=== PATIENT | female | born 1995 | race Caucasian/White ===

== ENCOUNTER 2023-01-22 12:36 | Outpatient (OUT) | payer BC, SELFPAY ==
--- NOTE | 2023-01-22 | US_ITS ---
[address] [address] Patient Name: ARIES SWANSON MRN: [id number] date: 1995 Sex: F Assigned Patient Location: US Current Patient Location: US Accession/Order Number: [id number] Exam Date: 01/22/2023 13:00 Report Date: 01/22/2023 13:35 At the request of: GEORGI SHELBY Procedure: US OB transvaginal Obstetrical ultrasound, 1st trimester CLINICAL: Missed menses N92.6 TECHNIQUE: Transabdominal and transvaginal obstetrical ultrasound was performed. FINDINGS: Comparison: None. UTERUS: A single intrauterine gestation sac is visualized. Yolk sac and pole identified. Mean gestational sac size is 1.07 cm. Dugger rump length is 6.1 mm. heart rate of 90 beats per minute. OVARIES/ADNEXA: The right ovary measures 3.8 x 2.7 x 2.7 cm. The left ovary measures 1.9 x 1.8 x 1.6 cm. There is color flow to both ovaries. There are small follicles in both ovaries, with a complex thick-walled cyst in the right ovary at 1.9 x 1.8 x 1.6 cm that is probably the corpus luteum cyst. No adnexal abnormality. OTHER FINDINGS: Cervical length is 3.2 cm. ULTRASOUND GESTATIONAL AGE AND ESTIMATED DATE OF CONFINEMENT: The estimated gestational age by ultrasound is 6 weeks 3 days with an estimated date of confinement by the ultrasound of 09/14/2023. US/US OB transvaginal IMPRESSION: 1. Single viable intrauterine gestation with yolk sac and pole identified. heart rate of 90 beats per minute. Estimated gestational age by ultrasound is 6 weeks 3 days with an estimated date of confinement by ultrasound of 09/14/2023. Follow-up ultrasound at 18-22 weeks' gestation for anatomy evaluation. 2. Probable 1.9 cm corpus luteum cyst in right ovary. Otherwise, normal ovaries bilaterally with small follicles. 3. Cervical length of 3.2 cm. Electronically authenticated by: LANEY ARRIETA Date: 01/22/2023 13:35
[2023-01-22 13:12] LABS: Basophils Percent Auto 0.5 % (0.2-2.0); Eosinophils Absolute Auto 0.1 10^3/uL (0.0-0.7); Eosinophils Percent Auto 0.6 % (0.9-7.0); Hematocrit 39.3 % (36.0-48.0); Hemoglobin 12.8 g/dL (12.0-16.0); Immature Granulocytes Abs Auto 0.02 10^3/uL (0.00-0.03); Immature Granulocytes Pct Auto 0.2 % (0.0-0.5); Lymphocytes Absolute Auto 1.8 10^3/uL (1.2-3.8); Lymphocytes Percent Auto 21.9 % (20.5-60.0); Mean Corpuscular HGB Conc 32.6 g/dL (29.9-35.2); Mean Corpuscular Volume 88.9 fL (81.0-99.0); Monocytes Absolute Auto 0.5 10^3/uL (0.3-0.8); Monocytes Percent Auto 6.3 % (1.7-12.0); Neutrophils Absolute Auto 5.9 10^3/uL (1.4-6.5); Neutrophils Percent Auto 70.5 % (43.0-75.0); Platelet Count 364 10^3/uL (150-450); Red Blood Count 4.42 10^6/uL (4.20-5.40); White Blood Count 8.3 10^3/uL (4.0-11.0)
[2023-01-22 14:53] LABS: HCG Quantitative 2533 mIU/mL
== END 2023-01-22 12:37 | disposition home or self-care (01) ==
LOC: US 12:36
PROVIDERS: Visit Provider Obstetrics & Gynecology
DX: O20.9 Hemorrhage in early pregnancy, unspecified (principal)
CPT/HCPCS: 36415; 76817; 84702; 85025; 86850; 86900; 86901

== ENCOUNTER 2023-01-24 16:11 | Outpatient (RCR) | payer BC, SELFPAY ==
[2023-01-24 17:10] LABS: HCG Quantitative 2003 mIU/mL
[2023-01-29 15:47] LABS: HCG Quantitative 1259 mIU/mL
== END 2023-02-19 17:51 | disposition home or self-care (01) ==
LOC: LAB 16:11
PROVIDERS: PCP Internal Medicine; Visit Provider Obstetrics & Gynecology
DX: N92.6 Irregular menstruation, unspecified (principal)
CPT/HCPCS: 36415; 84702

== ENCOUNTER 2023-02-19 15:52 | Outpatient (OUT) | payer BC, SELFPAY ==
[2023-02-19 16:44] LABS: HCG Quantitative 4 mIU/mL
== END 2023-02-19 15:53 | disposition home or self-care (01) ==
PROVIDERS: PCP Internal Medicine; Visit Provider Obstetrics & Gynecology
DX: O03.9 Complete or unspecified spontaneous abortion without complication (principal)
CPT/HCPCS: 36415; 84702

== ENCOUNTER 2023-02-21 16:19 | Outpatient (OUT) | payer BC, SELFPAY ==
[2023-02-21 17:16] LABS: HCG Quantitative 2 mIU/mL
== END 2023-02-21 16:20 | disposition home or self-care (01) ==
LOC: LAB 16:19
PROVIDERS: PCP Internal Medicine; Visit Provider Obstetrics & Gynecology
DX: O03.9 Complete or unspecified spontaneous abortion without complication (principal)
CPT/HCPCS: 36415; 84702

== ENCOUNTER 2023-05-27 16:32 | Outpatient (RCR) | payer BC, SELFPAY ==
[2023-05-27 18:28] LABS: HCG Quantitative 369 mIU/mL
[2023-05-29 16:41] LABS: HCG Quantitative 933 mIU/mL
== END 2023-06-20 17:43 | disposition home or self-care (01) ==
LOC: LAB 16:32
PROVIDERS: PCP Internal Medicine; Visit Provider Obstetrics & Gynecology
DX: Z32.01 Encounter for pregnancy test, result positive (principal); Z87.59 Personal history of other complications of pregnancy, childbirth and the puerperium
CPT/HCPCS: 36415; 84702

== ENCOUNTER 2023-07-05 08:38 | Outpatient (OUT) | payer BC, SELFPAY ==
--- NOTE | 2023-07-05 08:40 | US_ITS ---
[address] [address] Patient Name: ARIES MILLAN MRN: [id number] date: 1995 Sex: F Assigned Patient Location: [facility] Current Patient Location: [facility] Accession/Order Number: [id number] Exam Date: 07/05/2023 08:42 Report Date: 07/05/2023 09:19 At the request of: GEORGI SHELBY Procedure: US OB transvaginal EXAMINATION: US OB transvaginal HISTORY: Missed menses COMPARISON: No relevant comparison available. FINDINGS: GESTATIONAL SAC: Present and normal appearing. YOLK SAC: Present and normal appearing. POLE: Present and normal appearing. CARDIAC: Present. UTERUS: Small subchorionic hematoma, 2.3 x 1.3 x 0.9 cm. OVARIES: Right: Normal. Left: Not seen. CERVIX: 5.1 cm in length and closed. CUL-DE-SAC: Normal. OTHER: None. AGE BY LMP: Unknown LMP VEENA BY LMP: AGE BY US CRL: 10 weeks 4 days VEENA BY US CRL: 01/27/2024 US/US OB transvaginal IMPRESSION: 1. Single live intrauterine 10 weeks 4 days by today's ultrasound. Electronically authenticated by: COLEEN ZARAGOZA Date: 07/05/2023 09:19
--- OUTSIDE RECORDS SUMMARY | 2023-07-05 08:42 | XMS_ITS | CCD ---
Author Name Unknown Address [address] [place] [address] Organization [facility] Care Team Providers Care Coal Hiker Name Role Phone GINA OLGUIN Consulting Unavailable REQUEST, NONE LISTED Attending Unavailable REQUEST, NONE LISTED Admitting Unavailable REQUEST, NONE LISTED Admitting Unavailable GINA OLGUIN Consulting Unavailable REQUEST, NONE LISTED Attending Unavailable Pato Martinez Unavailable Allergies Allergy Classification Reported Allergen(s) Allergy Type Date of Onset Reaction(s) Facility (1 source) patient allergy list reviewed by nurse or physicia Propensity to adverse reactions 9 Comment:Done [facility] Other (1 source) Allergies Reconciled Propensity to adverse reactions Unknown [facility] Other Medications Current Medications Medication Drug Class(es) Dates Sig (Normalized) Sig (Original) amoxicillin 875 mg / clavulanate 125 mg oral tablet (1 source) Penicillin-class Antibacterial Start: 11-13-2022 take 1 tablet by mouth every twelve hours Amoxicillin-Pot Clavulanate 875-125 MG 1 tablet Orally every 12 hrs for 7 days Oct, Active valACYclovir 1000 mg oral tablet (1 source) Herpesvirus Nucleoside Analog DNA Polymerase Inhibitor, Herpes Simplex Virus Nucleoside Analog DNA Polymerase Inhibitor, Herpes Zoster Virus Nucleoside Analog DNA Polymerase Inhibitor Start: 04-08-2023 valACYclovir HCl 1 GM 2 tablets twice daily x 1 day then, Orally Once a day for 30 days Mar, Active Completed/Discontinued Medications Medication Drug Class(es) Dates Sig (Normalized) Sig (Original) azithromycin 250 mg oral tablet (1 source) Macrolide Antimicrobial Start: 03-05-2022 take 1 tablet by mouth once daily Azithromycin 250 MG azithromycin 250mg, 2 (two) Tablet PO today followed by 1 PO daily # 6, 03/05/2022, No Refill. Active Oral PO today followed by 1 PO daily for 5 14 Feb, 2022 Not-Taking/PRN cyclobenzaprine hydrochloride 5 mg oral tablet (1 source) Muscle Relaxant Start: 04-29-2020 take 1 tablet by mouth once as needed Cyclobenzaprine HCl 5MG Cyclobenzaprine HCl 5MG, 1 (one) Tablet Tablet q HS # 30, 04/29/2020, Ref. x2. Active Oral q HS for 0 *Pick strength-form from [employer] for eRX* Apr, Not-Taking/PRN sprintec 28 0.25-35 mg-mcg tablet (1 source) Progestin, Estrogen Start: 07-03-2022 take 1 tablet by mouth every twenty-four hours Sprintec 28 0.25-35 MG-MCG 1 tablet Orally Once a day for 28 days Jun, Not-Taking/PRN etodolac 400 mg oral tablet (1 source) Nonsteroidal Anti-inflammatory Drug Start: 04-29-2020 take 1 tablet by mouth twice daily as needed Etodolac 400MG Etodolac 400MG, 1 (one) Tablet Tablet two times daily # 60, 04/29/2020, Ref. x2. Active Oral two times daily for 0 *Pick strength-form from [employer] for eRX* Apr, Not-Taking/PRN Sprintec 28 0.25-35MG-MCG (1 source) Start: 10-02-2021 take 1 tablet by mouth once daily as needed Sprintec 28 0.25-35MG-MCG Sprintec 28 0.25-35MG-MCG, 1 (one) Tablet Tablet daily # 3, 10/02/2021, Ref. x3. Active Oral daily for 0 *Pick strength-form from [employer] for eRX* Sep, Not-Taking/PRN Problems Active Problems Problem Classification Problem Date Documented Da te Episodic/Chronic Allergic reactions (1 source) Nummular eczema; Translations: [Nummular dermatitis] Episodic Immunizations and screening for infectious disease (1 source) Vaccination given; Translations: [Encounter for immunization] Episodic Other non-traumatic joint disorders (1 source) Knee joint effusion; Translations: [Effusion, right knee] Episodic Other non-traumatic joint disorders (1 source) Unstable knee; Translations: [Other instability, right knee] Episodic Other nutritional; endocrine; and metabolic disorders (1 source) Overweight; Translations: [Overweight] Episodic Other upper respiratory infections (2 sources) Acute maxillary sinusitis; Translations: [Acute maxillary sinusitis, unspecified] Onset: 03-28-2015 Episodic Viral infection (3 sources) Herpesviral vesicular dermatitis; Translations: [Herpesviral vesicular dermatitis] Onset: 12-01-2013 Resolved: 03-05-2022 Episodic Past or Other Problems Problem Classification Problem Date Documented Da te Episodic/Chronic Acute and chronic tonsillitis (1 source) Acute tonsillitis; Translations: [Acute tonsillitis due to other specified organisms] Resolved: 03-05-2022 Episodic Bacterial infection; unspecified site (1 source) Bacterial infectious disease; Translations: [Bacterial infection, unspecified, in conditions classified elsewhere and of unspecified site] Onset: 04-19-2017 Episodic Deficiency and other anemia (1 source) Anemia; Translations: [Anemia, unspecified] Onset: 03-07-2015 Episodic Diseases of mouth; excluding dental (1 source) Stomatitis; Translations: [Other forms of stomatitis] Onset: 12-01-2013 Episodic Headache; including migraine (1 source) New daily persistent headache; Translations: [New daily persistent headache (NDPH)] Resolved: 03-05-2022 Chronic Malaise and fatigue (1 source) Malaise and fatigue; Translations: [Other malaise and fatigue] Onset: 11-09-2015 Episodic Other gastrointestinal disorders (1 source) Constipation; Translations: [Constipation, unspecified] Onset: 03-03-2014 Episodic Other infections; including parasitic (1 source) Vincent's angina; Translations: [Other Vincent's infections] Onset: 12-18-2016 Episodic Other nutritional; endocrine; and metabolic disorders (1 source) Body mass index 25-29 - overweight; Translations: [Body mass index 28.0-28.9, adult] Onset: 12-18-2016 Episodic Viral infection (1 source) Disease caused by 2019-nCoV; Translations: [COVID-19] Resolved: 03-05-2022 Encounters Encounter Date Encounter Type Care Provider Facility Start: 04-08-2023 End: 04-08-2023 ambulatory Pato Martinez Other [facility] Other Start: 04-08-2023 Telephone encounter [facility]o [facility] Start: 05-26-2020 End: 05-27-2020 Patient encounter procedure NONE LISTED REQUEST Facility:[facility] Start: 04-28-2020 End: 04-29-2020 Patient encounter procedure GINA OLGUIN Facility:[facility] Procedures Date Procedure Procedure Detail Performing Clinician Start: 09-10-2018 General examination of patient Pato Martinez Other Depression screening Donnell Martinez Other Immunizations Immunization Date Immunization Notes Care Provider Fa [facility] 02-04-2020 influenza virus vaccine, split virus (incl. purified surface antigen) Pato Martinez Other [facility] Other 03-11-2019 influenza virus vaccine, split virus (incl. purified surface antigen) Pato Martinez Other [facility] Other Payers Date Payer Category Payer Self-pay [facility] [id number] Unknown [id number] Unknown [id number] Social History Date Type Detail Facility Sex Assigned At [facility] Other Evaluation note 04-08-2023 Note Date & Type Note Facility 04-08-2023 Evaluation note Encounter Date Diagnosis Assessment Notes Mar, Cold sore (ICD-10 - B00.1) [facility] Other History general Narrative - Reported Note Date & Type Note Facility History general Narrative - Reported Type Medical History Problem Title : Adul t BMI between 22 kg/m2 and 30 kg/m2, Problem Description : Adult BMI between 22 kg/m2 and 30 kg/m2, Problem Comment : 0~0~0, Problem Status : Inactive,, Medical History Problem Title : Adul t BMI greater than or equal to 30 kg/m2, Problem Description : Adult BMI greater than or equal to 30 kg/m2, Problem Comment : 0~1~0, Problem Status : Inactive,, Medical History Problem Title : Adul t BMI less than 22 kg/m2, Problem Description : Adult BMI less than 22 kg/m2, Problem Comment : 0~0~0, Problem Status : Inactive,, Medical History Problem Title : Chil d BMI less than 18.5 kg/m2, Problem Description : Child BMI less than 18.5 kg/m2, Problem Comment : 0~1~0, Problem Status : Inactive,, Medical History Problem Title : comp liance with medical treatment, Problem Description : compliance with medical treatment, Problem Comment : Done, Problem Status : Inactive,, Medical History Problem Title : Depr ession Screening, Problem Description : Depression Screening, Problem Comment : Negative, Problem Status : Inactive,, Medical History Problem Title : Anthony turia, Problem Description : Hematuria, Problem Comment : Hematuria, Problem Status : Inactive,, Medical History Problem Title : MEDI ELIZABETH: No history of significant medical diseases, Problem Status : Inactive,, Medical History Problem Title : no k nown problems, Problem Description : no known problems, Problem Comment : F, Problem Status : Inactive,, Medical History Problem Title : past medical history E&M, Problem Description : past medical history E&M, Problem Comment : chronic constipation Anemia, Problem Status : Inactive,, Medical History Problem Title : past medical history reviewed, Problem Description : past medical history reviewed, Problem Comment : reviewed - no changes required, Problem Status : Inactive,, Medical History Problem Title : PHQ2 Questionairre Score, Problem Description : PHQ2 Questionairre Score, Problem Comment : 0, Problem Status : Inactive,, Medical History Problem Title : PHQ9 Question One score, Problem Description : PHQ9 Question One score, Problem Comment : 0, Problem Status : Inactive,, Medical History Problem Title : PHQ9 Question Two score, Problem Description : PHQ9 Question Two score, Problem Comment : 0, Problem Status : Inactive,, Medical History Problem Title : psyc hiatric examination, comments, Problem Description : psychiatric examination, comments, Problem Comment : alert and cooperative; normal mood and affect; normal attention span and concentration. , Problem Status : Inactive,, Medical History Problem Title : GALVAN SFUSION HISTORY: No history of receiving blood or blood product transfusion(s), Problem Status : Inactive,, Surgical History Problem Title : No p revious surgery, Problem Status : Resolved, Surgical History Problem Title : Non- Contributory Past Surgical History, Problem Status : Active, Surgical History Problem Title : None , Problem Status : Inactive, Surgical History Problem Title : past surgical history reviewed, Problem Description : past surgical history reviewed, Problem Comment : reviewed - no changes required, Problem Status : Inactive, [facility] Other Summary Purpose Family History No Family History Records Found Advance Directives No Advanced Directives Records Found Additional Source Comments INFORMATION SOURCE (unrecogn ized section and content) DATE CREATED AUTHOR 05/26/2020 [facility] REASON FOR VISIT (unrecogniz ed section and content) refill FOR RECORDS PERTAINING TO PATIENTS WHO ARE OR HAVE BEEN ENROLLED IN A CHEMICAL DEPENDENCY/SUBSTANCEABUSE PROGRAM, SOME INFORMATION MAY BE OMITTED. This clinical summary was aggregated from multiple sources. Caution should be exercised in using it in the provision of clinical care. This summary normalizes information from multiple sources, and as a consequence, information in this document may materially change the coding, format and clinical context of patient data. In addition, data may be omitted in some cases. CLINICAL DECISIONS SHOULD BE BASED ON THE PRIMARY CLINICAL RECORDS. [employer] provides no warranty or guarantee of the accuracy or completeness of information in this document.
== END 2023-07-05 08:39 | disposition home or self-care (01) ==
LOC: NOMS 08:38
PROVIDERS: PCP Internal Medicine; Visit Provider Obstetrics & Gynecology
DX: N92.6 Irregular menstruation, unspecified (principal); Z3A.10 10 weeks gestation of pregnancy
CPT/HCPCS: 76817

== ENCOUNTER 2023-07-06 10:26 | Outpatient (OUT) | payer BC, SELFPAY ==
--- OUTSIDE RECORDS SUMMARY | 2023-07-06 10:29 | XMS_ITS | CCD ---
Author Name Unknown Address [address] [place] [address] Organization [facility] Care Team Providers Care Financial Operations Clerk Name Role Phone GINA OLGUIN Consulting Unavailable REQUEST, NONE LISTED Attending Unavailable REQUEST, NONE LISTED Admitting Unavailable REQUEST, NONE LISTED Admitting Unavailable GINA OLGUIN Consulting Unavailable REQUEST, NONE LISTED Attending Unavailable Pato Martinez Unavailable Allergies Allergy Classification Reported Allergen(s) Allergy Type Date of Onset Reaction(s) Facility (1 source) patient allergy list reviewed by nurse or physicia Propensity to adverse reactions 9 Comment:Done [facility] Other (1 source) Allergies Reconciled Propensity to adverse reactions Unknown [facility] Other Medications Current Medications Medication Drug Class(es) [...] q HS for 0 *Pick strength-form from [employer] for eRX* Apr, Not-Taking/PRN sprintec 28 0.25-35 [...] times daily for 0 *Pick strength-form from [employer] for eRX* Apr, Not-Taking/PRN Sprintec 28 0.25-35MG-MCG (1 source) Start: 10-02-2021 take 1 tablet by mouth once daily as needed Sprintec 28 0.25-35MG-MCG Sprintec 28 0.25-35MG-MCG, 1 (one) Tablet Tablet daily # 3, 10/02/2021, Ref. x3. Active Oral daily for 0 *Pick strength-form from [employer] for eRX* Sep, Not-Taking/PRN Problems Active Problems [...] 04-08-2023 End: 04-08-2023 ambulatory Pato Martinez Other [facility] Other Start: 04-08-2023 Telephone encounter Pato [facility] Start: 05-26-2020 End: 05-27-2020 Patient encounter procedure NONE LISTED REQUEST Facility:[facility]1 Start: 04-28-2020 End: 04-29-2020 Patient encounter procedure GINA OLGUIN Facility:[facility]1 Procedures Date Procedure Procedure Detail Performing Clinician Start: 09-10-2018 General examination of patient Pato Martinez Other Depression screening Donnell Martinez Other Immunizations Immunization Date Immunization Notes Care Provider Fa [facility] 02-04-2020 influenza virus vaccine, split virus (incl. purified surface antigen) Pato Martinez Other [facility] Other 03-11-2019 influenza virus vaccine, split virus (incl. purified surface antigen) Pato Martinez Other [facility] Other Payers Date Payer Category Payer Self-pay [facility] [id number] Unknown [id number] Unknown [id number] Social History Date Type Detail Facility Sex Assigned At [facility] Other Evaluation note 04-08-2023 Note Date & Type Note Facility 04-08-2023 Evaluation note Encounter Date Diagnosis Assessment Notes Mar, Cold sore (ICD-10 - B00.1) [facility] Other History general Narrative - Reported Note [...] no changes required, Problem Status : Inactive, [facility] Other Summary Purpose Family History No Family History Records Found Advance Directives No Advanced Directives Records Found Additional Source Comments INFORMATION SOURCE (unrecogn ized section and content) DATE CREATED AUTHOR 05/26/2020 [facility] REASON FOR VISIT (unrecogniz ed section [...] BE BASED ON THE PRIMARY CLINICAL RECORDS. [employer] provides no warranty or guarantee of the accuracy or completeness of information in this document.
[2023-07-06 11:12] LABS: Basophils Percent Auto 0.3 % (0.2-2.0); Eosinophils Absolute Auto 0.1 10^3/uL (0.0-0.7); Eosinophils Percent Auto 0.9 % (0.9-7.0); Hematocrit 37.5 % (36.0-48.0); Hemoglobin 11.8 g/dL (12.0-16.0); Immature Granulocytes Abs Auto 0.04 10^3/uL (0.00-0.03); Immature Granulocytes Pct Auto 0.4 % (0.0-0.5); Lymphocytes Absolute Auto 1.8 10^3/uL (1.2-3.8); Lymphocytes Percent Auto 18.7 % (20.5-60.0); Mean Corpuscular HGB Conc 31.5 g/dL (29.9-35.2); Mean Corpuscular Hemoglobin 27.9 pg (26.7-34.0); Mean Corpuscular Volume 88.7 fL (81.0-99.0); Mean Platelet Volume 9.2 fL (9.5-13.5); Monocytes Absolute Auto 0.6 10^3/uL (0.3-0.8); Monocytes Percent Auto 6.6 % (1.7-12.0); Neutrophils Absolute Auto 7.1 10^3/uL (1.4-6.5); Neutrophils Percent Auto 73.1 % (43.0-75.0); Platelet Count 344 10^3/uL (150-450); Red Blood Count 4.23 10^6/uL (4.20-5.40); Red Cell Distribution Width 13.1 % (11.0-15.0); White Blood Count 9.7 10^3/uL (4.0-11.0)
[2023-07-06 11:18] LABS: Estimated Average Glucose 103 mg/dL; Glycohemoglobin A1C 5.2 % (4.5-6.2)
[2023-07-07 09:09] LABS: Rubella Antibodies, IgG 1.74 index (Immune >0.99)
[2023-07-07 11:07] LABS: HIV Ab/p24 Ag Screen Non Reactive (Non Reactive); Rapid Plasma Reagin, Quant Non Reactive titer (NonRea<1:1)
[2023-07-07 12:07] LABS: HBsAg Screen Negative (Negative)
[2023-07-07 14:17] LABS: HCV Ab Non Reactive (Non Reactive)
== END 2023-07-06 10:27 | disposition home or self-care (01) ==
LOC: LAB 10:27
PROVIDERS: PCP Internal Medicine; Visit Provider Obstetrics & Gynecology
DX: N92.6 Irregular menstruation, unspecified (principal)
CPT/HCPCS: 36415; 83036; 85025; 86592; 86762; 86803; 86850; 86900; 86901; 87086; 87340; 87389

== ENCOUNTER 2023-08-19 15:26 | Outpatient (REF) | payer BC, SELFPAY ==
--- OUTSIDE RECORDS SUMMARY | 2023-08-20 09:05 | XMS_ITS | CCD ---
Author Organization [facility] Care Team Providers Care Paintings Conservator Name Role Phone GINA OLGUIN Consulting Unavailable REQUEST, NONE LISTED Attending Unavailable REQUEST, NONE LISTED Admitting Unavailable REQUEST, NONE LISTED Admitting Unavailable GINA OLGUIN Consulting Unavailable REQUEST, NONE LISTED Attending Unavailable Pato Martinez Unavailable GEORGI SHELBY Attending Unavailable Allergies Allergy Classification Reported Allergen(s) Allergy Type Date of Onset Reaction(s) Facility (1 source) patient allergy list reviewed by nurse or physicia Propensity to adverse reactions Comment:Done [facility] Other (1 source) Allergies Reconciled Propensity to adverse reactions Unknown [facility] Other Medications Current Medications Medication Drug Class(es) [...] q HS for 0 *Pick strength-form from [employer] for eRX* Apr, Not-Taking/PRN sprintec 28 0.25-35 [...] times daily for 0 *Pick strength-form from [employer] for eRX* Apr, Not-Taking/PRN Sprintec 28 0.25-35MG-MCG (1 source) Start: 10-02-2021 take 1 tablet by mouth once daily as needed Sprintec 28 0.25-35MG-MCG Sprintec 28 0.25-35MG-MCG, 1 (one) Tablet Tablet daily # 3, 10/02/2021, Ref. x3. Active Oral daily for 0 *Pick strength-form from [employer] for eRX* Sep, Not-Taking/PRN Problems Active Problems [...] Date Encounter Type Care Provider Facility Start: 07-18-2023 End: 07-18-2023 ambulatory GEORGI HERON Not Available Start: 07-05-2023 End: 07-05-2023 ambulatory GEORGI HERON Not Available Start: 04-08-2023 End: 04-08-2023 ambulatory Pato Martinez Other [facility] Other Start: 04-08-2023 [facility] Start: 05-26-2020 End: 05-27-2020 Patient encounter procedure NONE LISTED REQUEST Facility:[facility]1 Start: 04-28-2020 End: 04-29-2020 Patient encounter procedure GINA OLGUIN Facility:[facility]1 Procedures Date Procedure Procedure Detail Performing Clinician Start: 09-10-2018 General examination of patient Pato Martinez Other Depression screening Donnell Martinez Other Immunizations Immunization Date Immunization Notes Care Provider Meli wilkinson 02-04-2020 influenza virus vaccine, split virus (incl. purified surface antigen) Pato Martinez Other [facility] Other 03-11-2019 influenza virus vaccine, split virus (incl. purified surface antigen) Pato Martinez Other [facility] Other Payers Date Payer Category Payer Unknown [id number] 1995 Unknown [id number] 1995 Unknown [id number] 1957 Self-pay [email or web address] [id number] Unknown [id number] Unknown [id number] Social History Date Type Detail Facility Sex Assigned At [facility] Other Evaluation note 04-08-2023 Note Date & Type Note Facility 04-08-2023 Evaluation note Encounter Date Diagnosis Assessment Notes Mar, Cold sore (ICD-10 - B00.1) [facility] Other History general Narrative - Reported Note [...] no changes required, Problem Status : Inactive, [facility] Other Summary Purpose Family History No Family History Records FoundNo Family History Records Found Advance Directives No Advanced Directives Records FoundNo Advanced Directives Records Found Additional Source Comments INFORMATION SOURCE (unrecogn ized section and content) DATE CREATED AUTHOR 05/26/2020 [facility] DATE CREATED AUTHOR AUTHOR'S ORGANIZ ATION 07/19/2023 [facility] EPIC REASON FOR VISIT (unrecogniz ed section and [...] BE BASED ON THE PRIMARY CLINICAL RECORDS. [employer] provides no warranty or guarantee of the accuracy or completeness of information in this document.
[2023-08-23 09:09] LABS: Age Gdln ACOG Testing Note (.); IGP, rfx Aptima HPV ASCU Note (.)
== END 2023-08-19 15:27 | disposition home or self-care (01) ==
LOC: LAB 15:26
PROVIDERS: PCP Internal Medicine; Visit Provider Physician Assistant
DX: Z01.419 Encounter for gynecological examination (general) (routine) without abnormal findings (principal)
CPT/HCPCS: G0145

== ENCOUNTER 2023-09-09 12:57 | Outpatient (OUT) | payer BC, SELFPAY ==
--- NOTE | 2023-09-09 13:08 | US_ITS ---
[address] [address] Patient Name: ARIES MILLAN MRN: [id number] date: 1995 Sex: F Assigned Patient Location: US Current Patient Location: US Accession/Order Number: [id number] Exam Date: 09/09/2023 13:12 Report Date: 09/09/2023 15:04 At the request of: GEORGI SHELBY Procedure: US OB anatomy EXAMINATION: US OB anatomy, US OB cervical length HISTORY: Screening, , for anatomic survey Z36.89 COMPARISON: Ultrasound OB transvaginal 07/05/2023 TECHNIQUE: Transabdominal sonographic examination was performed for obstetrical and evaluation. FINDINGS: Number: 1 Heart Rate: 142.9 bpm H.B. /min Amniotic Fluid Volume: Subjectively normal Placental Location: Anterior with lower margin 7.4 cm from os. Incidental small venous roberts. Cervix Length: 5.0 cm, closed. ANATOMY: Normal Structures -cerebellum, choroid plexus, cisterna magna, lateral cerebral ventricles, orbits, midline falx, hard palate, four-chamber heart, RVOT, LVOT, stomach, kidneys, bladder, umbilical cord insertion into abdomen, three-vessel cord, cervical spine, thoracic spine, lumbar spine, sacral spine, right upper extremity, left upper extremity, right lower extremity, left lower extremity. SUBOPTIMALLY SEEN: None ABNORMALITIES: None BIOMETRY: BPD: 4.6 cm 20 weeks 0 days HC: 17.5 cm 20 weeks 0 days AC: 15.2 cm 20 weeks 3 days FL: 3.2 cm 20 weeks 0 days EFW:337.7 grams; 56% FL/AC: 21.1 FL/BPD: 69.5 HC/AC: 1.2 GESTATIONAL AGE: Age by EDC: 20 weeks 0 days VEENA by EDC: 01/27/2024 Age by current US: 20 weeks 1 days VEENA by current US: 01/26/2024 US/US OB anatomy IMPRESSION: 1. Single live intrauterine with growth detailed above. Electronically authenticated by: COLEEN ZARAGOZA Date: 09/09/2023 15:04
--- NOTE | 2023-09-09 13:09 | US_ITS ---
[address] [address] Patient Name: ARIES MILLAN MRN: [id number] date: 1995 Sex: F Assigned Patient Location: US Current Patient Location: US Accession/Order Number: [id number] Exam Date: 09/09/2023 13:12 Report Date: 09/09/2023 15:04 At the request of: GEORGI SHELBY Procedure: US OB cervical length EXAMINATION: US OB anatomy, US OB cervical length HISTORY: Screening, , for anatomic survey Z36.89 COMPARISON: Ultrasound OB transvaginal 07/05/2023 TECHNIQUE: Transabdominal sonographic examination was performed for obstetrical and evaluation. FINDINGS: Number: 1 Heart Rate: 142.9 bpm H.B. /min Amniotic Fluid Volume: Subjectively normal Placental Location: Anterior with lower margin 7.4 cm from os. Incidental small venous roberts. Cervix Length: 5.0 cm, closed. ANATOMY: Normal Structures -cerebellum, choroid plexus, cisterna magna, lateral cerebral ventricles, orbits, midline falx, hard palate, four-chamber heart, RVOT, LVOT, stomach, kidneys, bladder, umbilical cord insertion into abdomen, three-vessel cord, cervical spine, thoracic spine, lumbar spine, sacral spine, right upper extremity, left upper extremity, right lower extremity, left lower extremity. SUBOPTIMALLY SEEN: None ABNORMALITIES: None BIOMETRY: BPD: 4.6 cm 20 weeks 0 days HC: 17.5 cm 20 weeks 0 days AC: 15.2 cm 20 weeks 3 days FL: 3.2 cm 20 weeks 0 days EFW:337.7 grams; 56% FL/AC: 21.1 FL/BPD: 69.5 HC/AC: 1.2 GESTATIONAL AGE: Age by EDC: 20 weeks 0 days VEENA by EDC: 01/27/2024 Age by current US: 20 weeks 1 days VEENA by current US: 01/26/2024 US/US OB cervical length IMPRESSION: 1. Single live intrauterine with growth detailed above. Electronically authenticated by: COLEEN ZARAGOZA Date: 09/09/2023 15:04
--- OUTSIDE RECORDS SUMMARY | 2023-09-09 13:17 | XMS_ITS | CCD ---
Author Organization [facility] Care Team Providers Care Certified Substance Abuse Counselor Name Role Phone GINA OLGUIN Consulting Unavailable REQUEST, NONE LISTED Attending Unavailable REQUEST, NONE LISTED Admitting Unavailable REQUEST, NONE LISTED Admitting Unavailable GINA OLGUIN Consulting Unavailable REQUEST, NONE LISTED Attending Unavailable Pato Martinez Unavailable GEORGI SHELBY Attending Unavailable MASOOD PILLAI Attending Unavailable Allergies Allergy Classification Reported Allergen(s) Allergy Type Date of Onset Reaction(s) Facility (1 source) patient allergy list reviewed by nurse or physicia Propensity to adverse reactions Comment:Done [employer] Other (1 source) Allergies Reconciled Propensity to adverse reactions Unknown [employer] [facility] Other Medications Current Medications Medication Drug Class(es) [...] followed by 1 PO daily for 5 Feb, Not-Taking/PRN cyclobenzaprine hydrochloride 5 mg oral tablet (1 source) Muscle Relaxant Start: 04-29-2020 take 1 tablet by mouth once as needed Cyclobenzaprine HCl 5MG Cyclobenzaprine HCl 5MG, 1 (one) Tablet Tablet q HS # 30, 04/29/2020, Ref. x2. Active Oral q HS for 0 *Pick strength-form from [employer] for eRX* Apr, Not-Taking/PRN sprintec 28 0.25-35 [...] times daily for 0 *Pick strength-form from [employer] for eRX* Apr, Not-Taking/PRN Sprintec 28 0.25-35MG-MCG (1 source) Start: 10-02-2021 take 1 tablet by mouth once daily as needed Sprintec 28 0.25-35MG-MCG Sprintec 28 0.25-35MG-MCG, 1 (one) Tablet Tablet daily # 3, 10/02/2021, Ref. x3. Active Oral daily for 0 *Pick strength-form from [employer] for eRX* Sep, Not-Taking/PRN Problems Active Problems [...] Date Encounter Type Care Provider Facility Start: 08-19-2023 End: 08-19-2023 ambulatory MASOOD PILLAI Not Available Start: 07-18-2023 End: 07-18-2023 ambulatory GEORGI COXO Not Available Start: 07-05-2023 End: 07-05-2023 ambulatory GEORGI HERON Not Available Start: 04-08-2023 End: 04-08-2023 ambulatory Pato Martinez Other [employer] Other Start: 04-08-2023 Telephone encounter [facility] Start: 05-26-2020 End: 05-27-2020 Patient encounter procedure NONE LISTED REQUEST Facility:H1 Start: 04-28-2020 End: 04-29-2020 Patient encounter procedure GINA OLGUIN Facility:H1 Procedures Date Procedure Procedure Detail Performing Clinician Start: 09-10-2018 General examination of patient Pato Martinez Other Depression screening Donnell Martinez Other Immunizations Immunization Date Immunization Notes Care Provider [facility] 02-04-2020 influenza virus vaccine, split virus (incl. purified surface antigen) Pato Martinez Other [employer] Other 03-11-2019 influenza virus vaccine, split virus (incl. purified surface antigen) Pato Martinez Other [employer] Other Payers Date Payer Category Payer Unknown [id number] 1995 Unknown [id number] 2.16.84 [id number] 1995 Unknown [id number] 2.16.84 [id number] 1995 Unknown [id number] 2.16.84 [id number] 1959 Self-pay [facility] [id number] [id number] Unknown [id number] 2.16.84 [id number] Unknown [id number] 2.16.84 [id number] Social History Date Type Detail Facility Sex Assigned At [employer] Other Evaluation note 04-08-2023 Note Date & Type Note Facility 04-08-2023 Evaluation note Encounter Date Diagnosis Assessment Notes Mar, Cold sore (ICD-10 - B00.1) [facility] Other History general Narrative - Reported Note [...] no changes required, Problem Status : Inactive, [place] [employer] Other Summary Purpose Family History No Family History Records FoundNo Family History Records Found Advance Directives No Advanced Directives Records FoundNo Advanced Directives Records Found Additional Source Comments INFORMATION SOURCE (unrecogn ized section and content) DATE CREATED AUTHOR 05/26/2020 [facility] DATE CREATED AUTHOR AUTHOR'S ORGANIZ ATION 08/20/2023 [facility] dical Specialists EPIC REASON FOR VISIT (unrecogniz [...] BE BASED ON THE PRIMARY CLINICAL RECORDS. [employer] [facility]. provides no warranty or guarantee of the accuracy or completeness of information in this document.
[2023-09-11 01:10] LABS: AFP Value 51.9 ng/mL (.); Gestat. Age Based On Ultrasound (.); Insulin Dep Diabetes No (.); OSBR Risk 1 IN 10000 (.); Results Report (.)
== END 2023-09-09 12:58 | disposition home or self-care (01) ==
LOC: US 12:57
PROVIDERS: PCP Internal Medicine; Visit Provider Obstetrics & Gynecology
DX: Z34.92 Encounter for supervision of normal pregnancy, unspecified, second trimester (principal); Z3A.20 20 weeks gestation of pregnancy
CPT/HCPCS: 36415; 76805; 76817; 82105

== ENCOUNTER 2023-10-17 08:03 | Outpatient (OUT) | payer BC, SELFPAY ==
--- OUTSIDE RECORDS SUMMARY | 2023-10-17 08:24 | XMS_ITS | CCD ---
Author Organization [facility] Care Team Providers Care Boat Carpenter Name Role Phone GINA OLGUIN Consulting Unavailable REQUEST, NONE LISTED Attending Unavailable REQUEST, NONE LISTED Admitting Unavailable REQUEST, NONE LISTED Admitting Unavailable GINA OLGUIN Consulting Unavailable REQUEST, NONE LISTED Attending Unavailable Pato Martinez Unavailable GEORGI SHELBY Attending Unavailable MASOOD PILLAI Attending Unavailable GEORGI SHELBY Attending Unavailable Allergies Allergy Classification Reported Allergen(s) Allergy Type Date of Onset Reaction(s) Facility (1 source) patient allergy list reviewed by nurse or physicia Propensity to adverse reactions 9 Comment:Done [employer] Other (1 source) Allergies Reconciled Propensity to adverse reactions Unknown [employer] Other Medications Current Medications Medication Drug Class(es) [...] q HS for 0 *Pick strength-form from [employer] for eRX* Apr, Not-Taking/PRN sprintec 28 0.25-35 [...] times daily for 0 *Pick strength-form from [employer] for eRX* Apr, Not-Taking/PRN Sprintec 28 0.25-35MG-MCG (1 source) Start: 10-02-2021 take 1 tablet by mouth once daily as needed Sprintec 28 0.25-35MG-MCG Sprintec 28 0.25-35MG-MCG, 1 (one) Tablet Tablet daily # 3, 10/02/2021, Ref. x3. Active Oral daily for 0 *Pick strength-form from [employer] for eRX* Sep, Not-Taking/PRN Problems Active Problems [...] Date Encounter Type Care Provider Facility Start: 09-18-2023 End: 09-18-2023 ambulatory GEORGI HERON Not Available Start: 08-19-2023 End: 08-19-2023 ambulatory MASOOD PILLAI Not Available Start: 07-18-2023 End: 07-18-2023 ambulatory GEORGI COXO Not Available Start: 07-05-2023 End: 07-05-2023 ambulatory GEORGI COXO Not Available Start: 04-08-2023 End: 04-08-2023 ambulatory Pato Martinez Other [employer] Other Start: 04-08-2023 Telephone encounter Pato [facility] Start: 05-26-2020 End: 05-27-2020 Patient encounter procedure NONE LISTED REQUEST Facility: Start: 04-28-2020 End: 04-29-2020 Patient encounter procedure GINA OLGUIN Facility: Procedures Date Procedure Procedure Detail Performing Clinician Start: 09-10-2018 General examination of patient Pato Martinez Other Depression screening Donnell Martinez Other Immunizations Immunization Date Immunization Notes Care Provider [facility] 02-04-2020 influenza virus vaccine, split virus (incl. purified surface antigen) Pato Martinez Other [employer] Other 03-11-2019 influenza virus vaccine, split virus (incl. purified surface antigen) Pato Martinez Other [employer] Other Payers Date Payer Category Payer Unknown [id number] 1995 Unknown [id number] 2.16.84 [id number] 1995 Unknown [id number] 2.16.84 [id number] 1995 Unknown [id number] 2.16.84 0.1.098341.3.579.2.1259 1995 Unknown [id number] 2.16.84 0.1.986209.3.579.2.1259 1957 Self-pay [facility] [id number] [id number] Unknown [id number] 2.16.84 [id number] Unknown [id number] 2.16.84 [id number] Social History Date Type Detail Facility Sex Assigned At [employer] Other Evaluation note 04-08-2023 Note Date & Type Note Facility 04-08-2023 Evaluation note Encounter Date Diagnosis Assessment Notes Mar, Cold sore (ICD-10 - B00.1) [employer] Other History general Narrative - Reported Note [...] no changes required, Problem Status : Inactive, [facility] [employer] Other Summary Purpose Family History No Family History Records FoundNo Family History Records Found Advance Directives No Advanced Directives Records FoundNo Advanced Directives Records Found Additional Source Comments INFORMATION SOURCE (unrecogn ized section and content) DATE CREATED AUTHOR 05/26/2020 [facility] DATE CREATED AUTHOR AUTHOR'S ORGANIZ ATION 09/19/2023 [facility] dical Specialists EPIC REASON FOR [...] BE BASED ON THE PRIMARY CLINICAL RECORDS. [facility]. provides no warranty or guarantee of the accuracy or completeness of information in this document.
[2023-10-17 09:58] LABS: Basophils Percent Auto 0.4 % (0.2-2.0); Eosinophils Absolute Auto 0.2 10^3/uL (0.0-0.7); Eosinophils Percent Auto 2.1 % (0.9-7.0); Hematocrit 34.7 % (36.0-48.0); Hemoglobin 11.2 g/dL (12.0-16.0); Immature Granulocytes Abs Auto 0.07 10^3/uL (0.00-0.03); Immature Granulocytes Pct Auto 0.6 % (0.0-0.5); Mean Corpuscular HGB Conc 32.3 g/dL (29.9-35.2); Mean Corpuscular Volume 89.9 fL (81.0-99.0); Mean Platelet Volume 9.4 fL (9.5-13.5); Monocytes Absolute Auto 0.6 10^3/uL (0.3-0.8); Monocytes Percent Auto 5.5 % (1.7-12.0); Neutrophils Absolute Auto 8.2 10^3/uL (1.4-6.5); Neutrophils Percent Auto 73.4 % (43.0-75.0); Platelet Count 267 10^3/uL (150-450); Red Blood Count 3.86 10^6/uL (4.20-5.40); Red Cell Distribution Width 12.6 % (11.0-15.0); White Blood Count 11.2 10^3/uL (4.0-11.0)
[2023-10-17 11:09] LABS: Glucose 1 Hour 86 mg/dL (<130)
== END 2023-10-17 08:04 | disposition home or self-care (01) ==
LOC: LAB 08:03
PROVIDERS: PCP Internal Medicine; Visit Provider Obstetrics & Gynecology
DX: Z13.1 Encounter for screening for diabetes mellitus (principal)
CPT/HCPCS: 36415; 82950; 85025

== ENCOUNTER 2023-12-02 09:57 | Outpatient (OUT) | payer BC, SELFPAY ==
--- NOTE | 2023-12-02 10:11 | US_ITS ---
[address] [address] Patient Name: ARIES MILLAN MRN: [id number] date: 1995 Sex: F Assigned Patient Location: US Current Patient Location: US Accession/Order Number: [id number] Exam Date: 12/02/2023 10:15 Report Date: 12/02/2023 11:13 At the request of: MASOOD PILLAI Procedure: US OB growth EXAMINATION: US OB growth HISTORY: Size Inconsistent With Dates O26.849 COMPARISON: No relevant comparison available. TECHNIQUE: Transabdominal sonographic examination was performed for obstetrical and evaluation. FINDINGS: Number: 1 Heart Rate: 124.42 bpm H.B. /min Amniotic Fluid Volume: 13.9 cm. Largest fluid pocket 5.4 cm Placental Location: Anterior. Grade 0 BIOMETRY: BPD: 8.00 cm; 32 weeks 1 day; 44.30 % HC: 30.92 cm; 34 weeks 4 days; 79.60 % AC: 29.47 cm; 33 weeks 3 days; 86.40 % FL: 6.25 cm; 32 weeks 3 days; 46.50 % EFW:2123.69 g; 75.50 %, 4 lbs. 11 oz. FL/AC: 21.19 FL/BPD: 78.09 HC/AC: 1.05 GESTATIONAL AGE: Age by EDC: 32 weeks 0 days VEENA by EDC: 2024-01-27 Age by current US: 33 weeks 1 day VEENA by current US: 2024-01-19 US/US OB growth IMPRESSION: Normal interval growth *Reference: [facility] Practice Guideline for the performance of Obstetric Ultrasound Examinations, January 20, 2007. Electronically authenticated by: ALEKS HERNANDEZ Date: 12/02/2023 11:13
--- OUTSIDE RECORDS SUMMARY | 2023-12-02 10:20 | XMS_ITS | CCD ---
Author Organization [facility] Care Team Providers Care Border Machine Operator Name Role Phone GINA OLGUIN Consulting Unavailable REQUEST, NONE LISTED Attending Unavailable REQUEST, NONE LISTED Admitting Unavailable REQUEST, NONE LISTED Admitting Unavailable GINA OLGUIN Consulting Unavailable REQUEST, NONE LISTED Attending Unavailable Pato Martinez Unavailable GEORGI SHELBY Attending Unavailable MASOOD PILLAI Attending Unavailable GEORGI SHELBY Attending Unavailable GEORGI SHELBY Attending Unavailable GEORGI SHELBY Attending Unavailable MASOOD PILLAI Attending Unavailable Allergies Allergy Classification Reported Allergen(s) Allergy Type Date of Onset Reaction(s) Facility (1 source) patient allergy list reviewed by nurse or physicia Propensity to adverse reactions 9 Comment:Done [facility] Other (1 source) Allergies Reconciled Propensity to adverse reactions Unknown [facility] Other Medications Current Medications Medication Drug Class(es) [...] oral tablet (1 source) Macrolide Antimicrobial Start: 11-14-2022 take 1 tablet by mouth once daily [...] q HS for 0 *Pick strength-form from [employer] for eRX* Apr, Not-Taking/PRN sprintec 28 0.25-35 [...] times daily for 0 *Pick strength-form from [employer] for eRX* Apr, Not-Taking/PRN Sprintec 28 0.25-35MG-MCG (1 source) Start: 10-02-2021 take 1 tablet by mouth once daily as needed Sprintec 28 0.25-35MG-MCG Sprintec 28 0.25-35MG-MCG, 1 (one) Tablet Tablet daily # 3, 10/02/2021, Ref. x3. Active Oral daily for 0 *Pick strength-form from [employer] for eRX* Sep, Not-Taking/PRN Problems Active Problems [...] Date Encounter Type Care Provider Facility Start: 11-20-2023 End: 11-20-2023 ambulatory MASOOD PILLAI Not Available Start: 11-06-2023 End: 11-06-2023 ambulatory GEORGI HERON Not Available Start: 10-16-2023 End: 10-16-2023 ambulatory GEORGI HERON Not Available Start: 09-18-2023 End: 09-18-2023 ambulatory GEORGI HERON Not Available Start: 08-19-2023 End: 08-19-2023 ambulatory MASOOD PILLAI Not Available Start: 07-18-2023 End: 07-18-2023 ambulatory GEORGI HERON Not Available Start: 07-05-2023 End: 07-05-2023 ambulatory GEORGI HERON Not Available Start: 04-08-2023 End: 04-08-2023 ambulatory Pato Martinez Other [facility] Other Start: 04-08-2023 Telephone encounter [facility] Start: 05-26-2020 End: 05-27-2020 Patient encounter procedure NONE LISTED REQUEST Facility: Start: 04-28-2020 End: 04-29-2020 Patient encounter procedure [facility] Facility: Procedures Date Procedure Procedure Detail Performing Clinician Start: 09-10-2018 General examination of patient Pato Martinez Other Depression screening Donnell Martinez Other Immunizations Immunization Date Immunization Notes Care Provider Fa [facility] 02-04-2020 influenza virus vaccine, split virus (incl. purified surface antigen) Pato Martinez Other [employer] Other 03-11-2019 influenza virus vaccine, split virus (incl. purified surface antigen) Pato Martinez Other [facility] Other Payers Date Payer Category Payer Unknown [id number] 1995 Unknown [id number] 2.16.84 0.1.788905.3.579.2.1259 1995 Unknown [id number] 2.16.84 0.1.300790.3.579.2.1259 1995 Unknown [id number] 2.16.84 0.1.852485.3.579.2.1259 1997 Unknown [id number] 2.16.84 0.1.610786.3.579.2.1259 1997 Unknown [id number] 2.16.84 0.1.495737.3.579.2.1259 1997 Unknown [id number] 2.16.84 0.1.558708.3.579.2.1259 1997 Unknown [id number] 2.16.84 0.1.558903.3.579.2.1259 1957 Self-pay [facility] [id number] 2.16.840.1.630526.19 Unknown [id number] 2.16.84 0.1.884056.3.579.2.593 Unknown [id number] 2.16.84 0.1.582187.3.579.2.593 Social History Date Type Detail Facility Sex Assigned At [facility] Other Evaluation note 04-08-2023 Note Date & Type Note Facility 04-08-2023 Evaluation note Encounter Date Diagnosis Assessment Notes Mar, Cold sore (ICD-10 - B00.1) [employer] Other History general Narrative - Reported Note [...] no changes required, Problem Status : Inactive, [employer] Other Summary Purpose Family History No Family History Records FoundNo Family History Records Found Advance Directives No Advanced Directives Records FoundNo Advanced Directives Records Found Additional Source Comments INFORMATION SOURCE (unrecogn ized section and content) DATE CREATED AUTHOR 05/26/2020 [facility] DATE CREATED AUTHOR AUTHOR'S ORGANMARIO ATION 11/22/2023 [facility] dical Specialists EPIC REASON FOR VISIT [...] BE BASED ON THE PRIMARY CLINICAL RECORDS. [facility] [employer] [facility]. provides no warranty or guarantee of the accuracy or completeness of information in this document.
== END 2023-12-02 09:58 | disposition home or self-care (01) ==
LOC: US 09:58
PROVIDERS: PCP Internal Medicine; Visit Provider Physician Assistant
DX: O26.849 Uterine size-date discrepancy, unspecified trimester (principal); Z3A.33 33 weeks gestation of pregnancy
CPT/HCPCS: 76816

== ENCOUNTER 2023-12-28 14:25 | Outpatient (OUT) | payer BC, SELFPAY ==
--- NOTE | 2023-12-28 | US_ITS ---
[address] [address] Patient Name: ARIES MILLAN MRN: [id number] date: 1995 Sex: F Assigned Patient Location: Current Patient Location: Accession/Order Number: [id number] Exam Date: 12/28/2023 14:30 Report Date: 12/30/2023 09:41 At the request of: MASOOD PILLAI Procedure: US OB limited EXAMINATION: US OB limited HISTORY: EXCESSIVE GROWTH O36.63X0 COMPARISON: No relevant comparison available. FINDINGS: Heart Rate: 130.43 bpm Amniotic Fluid Volume: 12.8 cm. Largest fluid pocket 5.6 cm Number: 1 Position: Cephalic presentation, longitudinal lie BIOMETRY: BPD: 8.91 cm; 36 weeks 0 days; 66.80 % HC: 33.17 cm; 37 weeks 6 days; 70.60 % AC: 34.23 cm; 38 weeks 1 day; >97 % FL: 6.93 cm; 35 weeks 4 days; 39.70 % EFW: 3157.16 g; 87.70 %, 6 lbs. 15 oz. FL/AC: 20.23 FL/BPD: 77.69 HC/AC: 0.97 GESTATIONAL AGE: Age by EDC: 35 weeks 5 days VEENA by EDC: 2024-01-27 Age by US: 36 weeks 6 days VEENA by US: 2024-01-19 US/US OB limited IMPRESSION: Abdominal circumference greater than the 97th percentile Estimated weight at the 88th percentile Electronically authenticated by: ALEKS HERNANDEZ Date: 12/30/2023 09:41
--- OUTSIDE RECORDS SUMMARY | 2023-12-28 14:27 | XMS_ITS | CCD ---
Author Organization [facility] Care Team Providers Care Call Center Representative Name Role Phone GINA OLGUIN Consulting Unavailable REQUEST, NONE LISTED Attending Unavailable REQUEST, NONE LISTED Admitting Unavailable REQUEST, NONE LISTED Admitting Unavailable GINA OLGUIN Consulting Unavailable REQUEST, NONE LISTED Attending Unavailable Pato Martinez Unavailable GEORGI SHELBY Attending Unavailable MASOOD PILLAI Attending Unavailable GEORGI SHELBY Attending Unavailable GEORGI SHELBY Attending Unavailable HERON, GEORGI Attending Unavailable MASOOD PILLAI Attending Unavailable GEORGI SHELBY Attending Unavailable Allergies Allergy Classification Reported Allergen(s) Allergy Type Date of Onset Reaction(s) Facility (1 source) patient allergy list reviewed by nurse or physicia Propensity to adverse reactions 9 Comment:Done [employer] Other (1 source) Allergies Reconciled Propensity to adverse reactions Unknown [employer] Other Medications Current Medications Medication Drug Class(es) [...] q HS for 0 *Pick strength-form from [employer] for eRX* Apr, Not-Taking/PRN sprintec 28 0.25-35 [...] times daily for 0 *Pick strength-form from [employer] for eRX* Apr, Not-Taking/PRN Sprintec 28 0.25-35MG-MCG (1 source) Start: 10-02-2021 take 1 tablet by mouth once daily as needed Sprintec 28 0.25-35MG-MCG Sprintec 28 0.25-35MG-MCG, 1 (one) Tablet Tablet daily # 3, 10/02/2021, Ref. x3. Active Oral daily for 0 *Pick strength-form from [employer] for eRX* Sep, Not-Taking/PRN Problems Active Problems [...] Date Encounter Type Care Provider Facility Start: 12-05-2023 End: 12-05-2023 ambulatory GEORGI HERON Not Available Start: 11-20-2023 End: 11-20-2023 ambulatory MASOOD PILLAI [...] 04-08-2023 End: 04-08-2023 ambulatory Pato Martinez Other [employer] Other Start: 04-08-2023 Telephone encounter [facility] Start: 05-26-2020 End: 05-27-2020 Patient encounter procedure NONE LISTED REQUEST Facility: Start: 04-28-2020 End: 04-29-2020 Patient encounter procedure GINA OLGUIN Facility: Procedures Date Procedure Procedure Detail Performing Clinician Start: 09-10-2018 General examination of patient Pato Martinez Other Depression screening Donnell Martinez Other Immunizations Immunization Date Immunization Notes Care Provider [facility] 02-04-2020 influenza virus vaccine, split virus (incl. purified surface antigen) Pato Martinez Other [employer] Other 03-11-2019 influenza virus vaccine, split virus (incl. purified surface antigen) Pato Martinez Other [employer] Other Payers Date Payer Category Payer Unknown [id number] 1995 Unknown [id number] 2.16.84 0.1.350727.3.579.2.1259 1995 Unknown [id number] 2.16.84 0.1.346458.3.579.2.1259 1997 Unknown [id number] 2.16.84 0.1.742101.3.579.2.1259 1997 Unknown [id number] 2.16.84 0.1.808868.3.579.2.1259 1997 Unknown [id number] 2.16.84 0.1.035461.3.579.2.1259 1997 Unknown [id number] 2.16.84 0.1.669455.3.579.2.1259 1997 Unknown [id number] 2.16.84 0.1.818526.3.579.2.1259 1997 Unknown [id number] 2.16.84 0.1.304676.3.579.2.[address]59 [address] Self-pay [facility] [id number] 2.16.840.1.828292.19 Unknown [id number] 2.16.84 0.1.701048.3.579.2.593 Unknown [id number] 2.16.84 0.1.290259.3.579.2.593 Social History Date Type Detail Facility Sex Assigned At [facility] Other Evaluation note 04-08-2023 Note Date & Type Note Facility 04-08-2023 Evaluation note Encounter Date Diagnosis Assessment Notes Mar, Cold sore (ICD-10 - B00.1) [facility] Other History general Narrative - Reported Note [...] no changes required, Problem Status : Inactive, [place] [employer] Other Summary Purpose Family History No Family History Records FoundNo Family History Records Found Advance Directives No Advanced Directives Records FoundNo Advanced Directives Records Found Additional Source Comments INFORMATION SOURCE (unrecogn ized section and content) DATE CREATED AUTHOR 05/26/2020 [facility] DATE CREATED AUTHOR AUTHOR'S ORGANIZ ATION 12/06/2023 [facility] dical Specialists EPIC REASON FOR [...] BE BASED ON THE PRIMARY CLINICAL RECORDS. [facility] [employer]. provides no warranty or guarantee of the accuracy or completeness of information in this document.
== END 2023-12-28 14:26 | disposition home or self-care (01) ==
LOC: US 14:25
PROVIDERS: PCP Internal Medicine; Visit Provider Physician Assistant
DX: O36.63X0 Maternal care for excessive fetal growth, third trimester, not applicable or unspecified (principal); Z3A.36 36 weeks gestation of pregnancy
CPT/HCPCS: 76815

== ENCOUNTER 2024-01-01 20:22 | Outpatient (REF) | payer BC, SELFPAY ==
--- OUTSIDE RECORDS SUMMARY | 2024-01-01 20:25 | XMS_ITS | CCD ---
Author Organization [facility] Care Team Providers Care [employer] Principal Name Role Phone GINA OLGUIN Consulting Unavailable [...] or physicia Propensity to adverse reactions Comment:Done [employer] Other (1 source) Allergies Reconciled Propensity to adverse reactions Unknown [employer] Other Medications Current Medications Medication Drug Class(es) [...] q HS for 0 *Pick strength-form from [employer] for eRX* Apr, Not-Taking/PRN sprintec 28 0.25-35 [...] times daily for 0 *Pick strength-form from [employer] for eRX* Apr, Not-Taking/PRN Sprintec 28 0.25-35MG-MCG (1 source) Start: 10-02-2021 take 1 tablet by mouth once daily as needed Sprintec 28 0.25-35MG-MCG Sprintec 28 0.25-35MG-MCG, 1 (one) Tablet Tablet daily # 3, 10/02/2021, Ref. x3. Active Oral daily for 0 *Pick strength-form from [employer] for eRX* Sep, Not-Taking/PRN Problems Active Problems [...] 04-08-2023 End: 04-08-2023 ambulatory Pato Martinez Other [employer] Other Start: 04-08-2023 Telephone encounter [facility] Start: 05-26-2020 End: 05-27-2020 Patient encounter procedure NONE LISTED REQUEST Facility: Start: 04-28-2020 End: 04-29-2020 Patient encounter procedure GINA OLGUIN Facility: Procedures Date Procedure Procedure Detail Performing Clinician Start: 09-10-2018 General examination of patient Pato Martinez Other Depression screening Donnell Martinez Other Immunizations Immunization Date Immunization Notes Care Provider Fa [facility] 02-04-2020 influenza virus vaccine, split virus (incl. purified surface antigen) Pato Martinez Other [employer] Other 03-11-2019 influenza virus vaccine, split virus (incl. purified surface antigen) Pato Martinez Other [employer] Other Payers Date Payer Category Payer Unknown [id number] 1995 Unknown [id number] 2.16.84 0.1.766361.3.579.2.1259 1997 Unknown [id number] 2.16.84 0.1.193242.3.579.2.1259 1997 Unknown [id number] 2.16.84 0.1.246712.3.579.2.1259 1997 Unknown [id number] 2.16.84 0.1.181461.3.579.2.1259 1997 Unknown [id number] 2.16.84 0.1.493826.3.579.2.1259 1997 Unknown [id number] 2.16.84 0.1.826954.3.579.2.1259 1997 Unknown [id number] 2.16.84 0.1.022579.3.579.2.1259 1997 Unknown [id number] 2.16.84 0.1.769314.3.579.2.1259 1959 Self-pay [facility] [id number] 2.16.840.1.719467.19 Unknown [id number] 2.16.84 0.1.527254.3.579.2.593 Unknown [id number] 2.16.84 0.1.293393.3.579.2.593 Social History Date Type Detail Facility Sex Assigned At [employer] Other Evaluation note 04-08-2023 Note Date & Type Note Facility 04-08-2023 Evaluation note Encounter Date Diagnosis Assessment Notes Mar, Cold sore (ICD-10 - B00.1) [employer] Other History general Narrative - Reported Note [...] no changes required, Problem Status : Inactive, [place] Other Summary Purpose Family History No Family History Records FoundNo Family History Records Found Advance Directives No Advanced Directives Records FoundNo Advanced Directives Records Found Additional Source Comments INFORMATION SOURCE (unrecogn ized section and content) DATE CREATED AUTHOR 05/26/2020 [facility] DATE CREATED AUTHOR AUTHOR'S ORGANIZ ATION 12/06/2023 [facility] dical Specialists EPIC REASON FOR VISIT [...] BE BASED ON THE PRIMARY CLINICAL RECORDS. [facility] [employer]. provides no warranty or guarantee of the accuracy or completeness of information in this document.
== END 2024-01-01 20:23 | disposition home or self-care (01) ==
LOC: LAB 20:22
PROVIDERS: PCP Internal Medicine; Visit Provider Obstetrics & Gynecology
DX: Z34.93 Encounter for supervision of normal pregnancy, unspecified, third trimester (principal)
CPT/HCPCS: 87081; 87150

== ENCOUNTER 2024-01-21 18:56 | Outpatient (OUT) | payer BC, SELFPAY ==
--- NOTE | 2024-01-21 18:58 | US_ITS ---
[address] [address] Patient Name: ARIES MILLAN MRN: [id number] date: 1995 Sex: F Assigned Patient Location: [facility] Current Patient Location: Accession/Order Number: [id number] Exam Date: 01/21/2024 19:04 Report Date: 01/22/2024 07:06 At the request of: GEORGI SHELBY Procedure: US OB growth EXAMINATION: US OB growth HISTORY: EXCESSIVE GROWTH AFFECTING O36.63X0 COMPARISON: No relevant comparison available. FINDINGS: Heart Rate: 145.95 bpm Amniotic Fluid Volume: 13.1 cm, largest fluid pocket 7.3 cm Number: 1 Position: Cephalic presentation, longitudinal lie BIOMETRY: BPD: 9.43 cm; 38 weeks 3 days; 64.90 % HC: 35.32 cm; 41 weeks 2 days; 84.50 % AC: 36.52 cm; 40 weeks 3 days; 94.10 % FL: 7.71 cm; 39 weeks 3 days; 65.20 % EFW: 3969.39 g; 87.60 %, 8 lbs. 12 oz. FL/AC: 21.12 FL/BPD: 81.82 HC/AC: 0.97 GESTATIONAL AGE: Age by EDC: 39 weeks 1 day VEENA by EDC: 2024-01-27 Age by US: 39 weeks 6 days VEENA by US: 2024-01-22 US/US OB growth IMPRESSION: Normal interval growth, estimated weight at the 88th percentile Electronically authenticated by: ALEKS HERNANDEZ Date: 01/22/2024 07:06
--- OUTSIDE RECORDS SUMMARY | 2024-01-21 18:59 | XMS_ITS | CCD ---
Author Organization [facility] Care Team Providers Care Secretary Book Keeper Name Role Phone GINA OLGUIN Consulting Unavailable REQUEST, NONE LISTED Attending Unavailable REQUEST, NONE LISTED Admitting Unavailable REQUEST, NONE LISTED Admitting Unavailable GINA OLGUIN Consulting Unavailable REQUEST, NONE LISTED Attending Unavailable Pato Martinez Unavailable GEORGI SHELBY Attending Unavailable FREYAMASOOD Attending Unavailable HERON, GEORGI Attending Unavailable HERON, GEORGI Attending Unavailable HERON, GEORGI Attending Unavailable FREYA, MASOOD Attending Unavailable HERON, GEORGI Attending Unavailable FREYA, MASOOD Attending Unavailable HERON, GEORGI Attending Unavailable FREYA, MASOOD Attending Unavailable Allergies Allergy Classification Reported Allergen(s) Allergy Type Date of Onset Reaction(s) Facility (1 source) patient allergy list reviewed by nurse or physicia Propensity to adverse reactions Comment:Done [employer] Other (1 source) Allergies Reconciled Propensity to adverse reactions Unknown [employer] Other Medications Current Medications Medication Drug Class(es) [...] q HS for 0 *Pick strength-form from [employer] for eRX* Apr, Not-Taking/PRN sprintec 28 0.25-35 [...] times daily for 0 *Pick strength-form from [employer] for eRX* Apr, Not-Taking/PRN Sprintec 28 0.25-35MG-MCG (1 source) Start: 10-02-2021 take 1 tablet by mouth once daily as needed Sprintec 28 0.25-35MG-MCG Sprintec 28 0.25-35MG-MCG, 1 (one) Tablet Tablet daily # 3, 10/02/2021, Ref. x3. Active Oral daily for 0 *Pick strength-form from [employer] for eRX* Sep, Not-Taking/PRN Problems Active Problems [...] Date Encounter Type Care Provider Facility Start: 01-08-2024 End: 01-08-2024 ambulatory MASOOD FREYA Not Available Start: 01-01-2024 End: 01-01-2024 ambulatory GEORGI HERON Not Available Start: 12-19-2023 End: 12-19-2023 ambulatory MASOOD FREYA Not Available Start: 12-05-2023 End: 12-05-2023 ambulatory GEORGI HERON Not Available Start: 11-20-2023 End: 11-20-2023 ambulatory MASOOD FREYA Not Available Start: 11-06-2023 End: 11-06-2023 ambulatory GEORGI HERON Not Available Start: 10-16-2023 End: 10-16-2023 ambulatory GEORGI HERON Not Available Start: 09-18-2023 End: 09-18-2023 ambulatory GEORGI HERON Not Available Start: 08-19-2023 End: 08-19-2023 ambulatory MASOOD FREYA Not Available Start: 07-18-2023 End: 07-18-2023 ambulatory GEORGI HERON Not Available Start: 07-05-2023 End: 07-05-2023 ambulatory GEORGI HERON Not Available Start: 04-08-2023 End: 04-08-2023 ambulatory Pato Juan Other [employer] Other Start: 04-08-2023 Telephone encounter [facility] Start: 05-26-2020 End: 05-27-2020 Patient encounter procedure NONE LISTED REQUEST Facility: Start: 04-28-2020 End: 04-29-2020 Patient encounter procedure GINA OLGUIN Facility: Procedures Date Procedure Procedure Detail Performing Clinician Start: 09-10-2018 General examination of patient Pato Juan Other Depression screening Donnell Martinez Other Immunizations Immunization Date Immunization Notes Care Provider Fa cili 02-04-2020 influenza virus vaccine, split virus (incl. purified surface antigen) Pato Martinez Other [employer] Other 03-11-2019 influenza virus vaccine, split virus (incl. purified surface antigen) Pato Ball Other [employer] Other Payers Date Payer Category Payer Unknown [id number] 1995 Unknown [id number] 2.16.84 0.1.261965.3.579.2.1259 1997 Unknown [id number] 2.16.84 0.1.836790.3.579.2.1259 1997 Unknown [id number] 2.16.84 0.1.166432.3.579.2.1259 1997 Unknown [id number] 2.16.84 0.1.581767.3.579.2.1259 1997 Unknown [id number] 2.16.84 0.1.489512.3.579.2.1259 1997 Unknown [id number] 2.16.84 0.1.561720.3.579.2.1259 1997 Unknown [id number] 2.16.84 0.1.416059.3.579.2.1259 1997 Unknown [id number] 2.16.84 0.1.929192.3.579.2.1259 1997 Unknown [id number] 2.16.84 0.1.397027.3.579.2.1259 1997 Unknown [id number] 2.16.84 0.1.042616.3.579.2.1259 1997 Unknown [id number] 2.16.84 0.1.863073.3.579.2.1259 1957 Self-pay [employer] [facility] [id number] 2.16.840.1.196495.19 Unknown [id number] 2.16.84 0.1.952324.3.579.2.593 Unknown [id number] 2.16.84 0.1.763127.3.579.2.593 Social History Date Type Detail Facility Sex Assigned At [employer] Other Evaluation note 04-08-2023 Note Date & Type Note Facility 04-08-2023 Evaluation note Encounter Date Diagnosis Assessment Notes Mar, Cold sore (ICD-10 - B00.1) [place] [employer] Other History general Narrative - Reported Note [...] no changes required, Problem Status : Inactive, [employer] Other Summary Purpose Family History No Family History Records FoundNo Family History Records Found Advance Directives No Advanced Directives Records FoundNo Advanced Directives Records Found Additional Source Comments INFORMATION SOURCE (unrecogn ized section and content) DATE CREATED AUTHOR 05/26/2020 [facility] DATE CREATED AUTHOR AUTHOR'S ORGANIZ ATION 01/11/2024 [facility] dical Specialists EPIC REASON FOR [...] BE BASED ON THE PRIMARY CLINICAL RECORDS. [employer] provides no warranty or guarantee of the accuracy or completeness of information in this document.
[2024-01-21 19:40] VITALS: BP 120/77; PULSE 104
--- NOTE | 2024-01-21 20:07 | US_ITS ---
[address] [address] Patient Name: ARIES MILLAN MRN: [facility]:[id number] date: 1995 Sex: F Assigned Patient Location: [facility] Current Patient Location: [facility] Accession/Order Number: [id number] Exam Date: 01/21/2024 20:10 Report Date: 01/21/2024 21:05 At the request of: GEORGI SHELBY Procedure: US OB BPP w non-stress OB ultrasound for biophysical profile, 01/21/2024 8:10 PM EDT COMPARISON: OB ultrasound, 12/28/2023. CLINICAL HISTORY: tachycardia Biophysical profile is scored: breathing score 2 out of 2. tone score 2 out of 2. movements score 2 out of 2. Qualitative amniotic fluid amount score 2 out of 2. reactivity was not performed or the results are not known at time of examination. This gives a total of 8 out of 8. The position is cephalic. The heart rate is 140 beats per minute. Amniotic fluid index is 13.6 cm. US/US OB BPP w non-stress IMPRESSION: 1. A score of 8 of 8 is noted. 2. The heart rate is 140 beats per minute. 3. The position is cephalic. Amniotic fluid index 13.6 cm. Electronically authenticated by: Joanne CALVILLO Date: 01/21/2024 21:05
== END 2024-01-21 21:45 | disposition home or self-care (01) ==
LOC: US 19:24 → FBC 19:31
PROVIDERS: PCP Internal Medicine; Visit Provider Obstetrics & Gynecology
DX: O36.63X0 Maternal care for excessive fetal growth, third trimester, not applicable or unspecified (principal); Z3A.39 39 weeks gestation of pregnancy
CPT/HCPCS: 59025; 76816; 76818

== ENCOUNTER 2024-01-24 10:59 | Outpatient (OUT) | payer BC, SELFPAY ==
[2024-01-24 11:09] VITALS: BP 130/69; PULSE 77
--- OUTSIDE RECORDS SUMMARY | 2024-01-24 11:13 | XMS_ITS | CCD ---
Author Organization [facility] Care Team Providers Care Laminator Preforms Name Role Phone GINA OLGUIN Consulting Unavailable [...] or physicia Propensity to adverse reactions Comment:Done [employer] Other (1 source) Allergies Reconciled Propensity to adverse reactions Unknown [employer] Other Medications Current Medications Medication Drug Class(es) [...] q HS for 0 *Pick strength-form from [employer] for eRX* Apr, Not-Taking/PRN sprintec 28 0.25-35 [...] times daily for 0 *Pick strength-form from [employer] for eRX* Apr, Not-Taking/PRN Sprintec 28 0.25-35MG-MCG (1 source) Start: 10-02-2021 take 1 tablet by mouth once daily as needed Sprintec 28 0.25-35MG-MCG Sprintec 28 0.25-35MG-MCG, 1 (one) Tablet Tablet daily # 3, 10/02/2021, Ref. x3. Active Oral daily for 0 *Pick strength-form from [employer] for eRX* Sep, Not-Taking/PRN Problems Active Problems [...] 04-08-2023 End: 04-08-2023 ambulatory Pato Juan Other [employer] Other Start: 04-08-2023 Telephone encounter Pato Martinez [...] (incl. purified surface antigen) Pato Martinez Other [employer] Other 03-11-2019 influenza virus vaccine, split virus (incl. purified surface antigen) Pato Ball Other [employer] Other Payers Date Payer Category Payer Unknown [id number] 1995 Unknown [id number] 2.16.84 0.1.185426.3.579.2.1259 1997 Unknown [id number] 2.16.84 0.1.002760.3.579.2.1259 1997 Unknown [id number] 2.16.84 0.1.889283.3.579.2.1259 1997 Unknown [id number] 2.16.84 0.1.650864.3.579.2.1259 1997 Unknown [id number] 2.16.84 0.1.782074.3.579.2.1259 1997 Unknown [id number] 2.16.84 0.1.388148.3.579.2.1259 1997 Unknown [id number] 2.16.84 0.1.294001.3.579.2.1259 1997 Unknown [id number] 2.16.84 0.1.613264.3.579.2.1259 1997 Unknown [id number] 2.16.84 0.1.666934.3.579.2.1259 1997 Unknown [id number] 2.16.84 0.1.153533.3.579.2.1259 1997 Unknown [id number] 2.16.84 0.1.153485.3.579.2.1259 1957 Self-pay [employer] [facility] [id number] 2.16.840.1.671459.19 Unknown [id number] 2.16.84 0.1.333767.3.579.2.593 Unknown [id number] 2.16.84 0.1.850530.3.579.2.593 Social History Date Type Detail Facility Sex Assigned At [employer] Other Evaluation note 04-08-2023 Note Date & Type Note Facility 04-08-2023 Evaluation note Encounter Date Diagnosis Assessment Notes Mar, Cold sore (ICD-10 - B00.1) [employer] Other History general Narrative - Reported Note [...] no changes required, Problem Status : Inactive, [employer] Other Summary Purpose Family History No Family History Records FoundNo Family History Records Found Advance Directives No Advanced Directives Records FoundNo Advanced Directives Records Found Additional Source Comments INFORMATION SOURCE (unrecogn ized section and content) DATE CREATED AUTHOR 05/26/2020 [facility] DATE CREATED AUTHOR AUTHOR'S ORGANIZ ATION 01/11/2024 [facility] dical Specialists EPIC REASON FOR VISIT [...] BE BASED ON THE PRIMARY CLINICAL RECORDS. [employer] provides no warranty or guarantee of the accuracy or completeness of information in this document.
== END 2024-01-24 11:38 | disposition home or self-care (01) ==
LOC: FBCO 11:00 → FBC 11:05
PROVIDERS: PCP Internal Medicine; Visit Provider Obstetrics & Gynecology
DX: O26.893 Other specified pregnancy related conditions, third trimester (principal); Z3A.39 39 weeks gestation of pregnancy
CPT/HCPCS: 59025

== ENCOUNTER 2024-01-28 07:03 | Outpatient (OUT) | payer BC, SELFPAY ==
--- NOTE | 2024-01-28 | US_ITS ---
[address] [address] Patient Name: ARIES MILLAN MRN: [id number] date: 1995 Sex: F Assigned Patient Location: [facility] Current Patient Location: Accession/Order Number: [id number] Exam Date: 01/28/2024 11:07 Report Date: 01/28/2024 12:38 At the request of: GEORGI SHELBY Procedure: US OB BPP w non-stress EXAMINATION: US OB BPP w non-stress HISTORY:POST GESTATIONAL AGE COMPARISON: Ultrasound OB biophysical 01/21/2024 TECHNIQUE: Ultrasound biophysical profile was performed in the radiology department. BREATHING MOVEMENTS: 2 GROSS BODY MOVEMENTS: 2 TONE: 2 QUALITATIVE AMNIOTIC FLUID VOLUME: 2 PRESENTATION: CEPHALIC HEART RATE: 118.33 bpm AMNIOTIC FLUID VOLUME: 13.76 cm GESTATIONAL AGE: 40 weeks 1 day US/US OB BPP w non-stress IMPRESSION: Total biophysical profile score: 8 Electronically authenticated by: COLEEN ZARAGOZA Date: 01/28/2024 12:38
--- OUTSIDE RECORDS SUMMARY | 2024-01-28 07:06 | XMS_ITS | CCD ---
Author Organization [facility] Care Team Providers Care Farm Machine Tender Name Role Phone GINA OLGUIN Consulting Unavailable [...] or physicia Propensity to adverse reactions Comment:Done [employer] Other (1 source) Allergies Reconciled Propensity to adverse reactions Unknown [employer] Other Medications Current Medications Medication Drug Class(es) [...] q HS for 0 *Pick strength-form from [employer] for eRX* Apr, Not-Taking/PRN sprintec 28 0.25-35 [...] times daily for 0 *Pick strength-form from [employer] for eRX* Apr, Not-Taking/PRN Sprintec 28 0.25-35MG-MCG (1 source) Start: 10-02-2021 take 1 tablet by mouth once daily as needed Sprintec 28 0.25-35MG-MCG Sprintec 28 0.25-35MG-MCG, 1 (one) Tablet Tablet daily # 3, 10/02/2021, Ref. x3. Active Oral daily for 0 *Pick strength-form from [employer] for eRX* Sep, Not-Taking/PRN Problems Active Problems [...] 04-08-2023 End: 04-08-2023 ambulatory Pato Juan Other [employer] Other Start: 04-08-2023 Telephone encounter Pato Martinez [...] (incl. purified surface antigen) Pato Martinez Other [employer] Other 03-11-2019 influenza virus vaccine, split virus (incl. purified surface antigen) Pato Ball Other [employer] Other Payers Date Payer Category Payer Unknown [id number] 1995 Unknown [id number] 2.16.84 0.1.621615.3.579.2.1259 1997 Unknown [id number] 2.16.84 0.1.551011.3.579.2.1259 1997 Unknown [id number] 2.16.84 0.1.257510.3.579.2.1259 1997 Unknown [id number] 2.16.84 0.1.365985.3.579.2.1259 1997 Unknown [id number] 2.16.84 0.1.221701.3.579.2.1259 1997 Unknown [id number] 2.16.84 0.1.850407.3.579.2.1259 1997 Unknown [id number] 2.16.84 0.1.974607.3.579.2.1259 1997 Unknown [id number] 2.16.84 0.1.475892.3.579.2.1259 1997 Unknown [id number] 2.16.84 0.1.608774.3.579.2.1259 1997 Unknown [id number] 2.16.84 0.1.862566.3.579.2.1259 1997 Unknown [id number] 2.16.84 0.1.779033.3.579.2.1259 1957 Self-pay [employer] [facility] [id number] 2.16.840.1.843464.19 Unknown [id number] 2.16.84 0.1.219715.3.579.2.593 Unknown [id number] 2.16.84 0.1.559510.3.579.2.593 Social History Date Type Detail Facility Sex Assigned At [employer] Other Evaluation note 04-08-2023 Note Date & Type Note Facility 04-08-2023 Evaluation note Encounter Date Diagnosis Assessment Notes Mar, Cold sore (ICD-10 - B00.1) [employer] Other History general Narrative - Reported Note [...] no changes required, Problem Status : Inactive, [employer] Other Summary Purpose Family History No Family History Records FoundNo Family History Records Found Advance Directives No Advanced Directives Records FoundNo Advanced Directives Records Found Additional Source Comments INFORMATION SOURCE (unrecogn ized section and content) DATE CREATED AUTHOR 05/26/2020 [facility] DATE CREATED AUTHOR AUTHOR'S ORGANIZ ATION 01/11/2024 [facility] dical Specialists EPIC REASON FOR VISIT [...] BE BASED ON THE PRIMARY CLINICAL RECORDS. [employer]. provides no warranty or guarantee of the accuracy or completeness of information in this document.
[2024-01-28 11:43] VITALS: BP 108/65; PULSE 76
== END 2024-01-28 12:10 | disposition home or self-care (01) ==
LOC: US 07:03 → FBC 11:01
PROVIDERS: PCP Internal Medicine; Visit Provider Obstetrics & Gynecology
DX: O48.0 Post-term pregnancy (principal); Z3A.40 40 weeks gestation of pregnancy
CPT/HCPCS: 76818

== ENCOUNTER 2024-01-29 18:56 | Inpatient (IN) | payer BC, SELFPAY ==
[2024-01-29] VITALS (13 sets, daily range): BP systolic 118–131; BP diastolic 68–79; PULSE 63–80; TEMP 36.4
--- OUTSIDE RECORDS SUMMARY | 2024-01-29 18:58 | XMS_ITS | CCD ---
Author Organization [facility] Care Team Providers Care [employer]enet P8 Developer Name Role Phone GINA OLGUIN Consulting Unavailable [...] or physicia Propensity to adverse reactions Comment:Done [employer] Other (1 source) Allergies Reconciled Propensity to adverse reactions Unknown [employer] Other Medications Current Medications Medication Drug Class(es) [...] q HS for 0 *Pick strength-form from [employer] for eRX* Apr, Not-Taking/PRN sprintec 28 0.25-35 [...] times daily for 0 *Pick strength-form from [employer] for eRX* Apr, Not-Taking/PRN Sprintec 28 0.25-35MG-MCG (1 source) Start: 10-02-2021 take 1 tablet by mouth once daily as needed Sprintec 28 0.25-35MG-MCG Sprintec 28 0.25-35MG-MCG, 1 (one) Tablet Tablet daily # 3, 10/02/2021, Ref. x3. Active Oral daily for 0 *Pick strength-form from [employer] for eRX* Sep, Not-Taking/PRN Problems Active Problems [...] 04-08-2023 End: 04-08-2023 ambulatory Pato Juan Other [employer] Other Start: 04-08-2023 Telephone encounter Pato Martinez [...] (incl. purified surface antigen) Pato Martinez Other [employer] Other 03-11-2019 influenza virus vaccine, split virus (incl. purified surface antigen) Pato Ball Other [employer] Other Payers Date Payer Category Payer Unknown [id number] 1995 Unknown [id number] 2.16.84 0.1.417962.3.579.2.1259 1997 Unknown [id number] 2.16.84 0.1.077888.3.579.2.1259 1997 Unknown [id number] 2.16.84 0.1.797500.3.579.2.1259 1997 Unknown [id number] 2.16.84 0.1.657286.3.579.2.1259 1997 Unknown [id number] 2.16.84 0.1.546672.3.579.2.1259 1997 Unknown [id number] 2.16.84 0.1.130810.3.579.2.1259 1997 Unknown [id number] 2.16.84 0.1.555976.3.579.2.1259 1997 Unknown [id number] 2.16.84 0.1.328857.3.579.2.1259 1997 Unknown [id number] 2.16.84 0.1.688252.3.579.2.1259 1997 Unknown [id number] 2.16.84 0.1.883270.3.579.2.1259 1997 Unknown [id number] 2.16.84 0.1.083963.3.579.2.1259 1957 Self-pay [employer] [facility] [id number] 2.16.840.1.333089.19 Unknown [id number] 2.16.84 0.1.644821.3.579.2.593 Unknown [id number] 2.16.84 0.1.081067.3.579.2.593 Social History Date Type Detail Facility Sex Assigned At [employer] Other Evaluation note 04-08-2023 Note Date & Type Note Facility 04-08-2023 Evaluation note Encounter Date Diagnosis Assessment Notes Mar, Cold sore (ICD-10 - B00.1) [employer] Other History general Narrative - Reported Note [...] no changes required, Problem Status : Inactive, [employer] Other Summary Purpose Family History No Family History Records FoundNo Family History Records Found Advance Directives No Advanced Directives Records FoundNo Advanced Directives Records Found Additional Source Comments INFORMATION SOURCE (unrecogn ized section and content) DATE CREATED AUTHOR 05/26/2020 [facility] DATE CREATED AUTHOR AUTHOR'S ORGANIZ ATION 01/11/2024 [facility] dical Specialists EPIC REASON FOR VISIT [...] BE BASED ON THE PRIMARY CLINICAL RECORDS. [employer] provides no warranty or guarantee of the accuracy or completeness of information in this document.
[2024-01-29] MEDS: DINOPROSTONE 10 MG VAG INSERT.ER VAGINAL (20:15)
[2024-01-29 20:28] LABS: Hematocrit 36.5 % (36.0-48.0); Hemoglobin 12.4 g/dL (12.0-16.0); Mean Corpuscular Hemoglobin 30.7 pg (26.7-34.0); Mean Corpuscular Volume 90.3 fL (81.0-99.0); Mean Platelet Volume 9.6 fL (9.5-13.5); Platelet Count 250 10^3/uL (150-450); Red Blood Count 4.04 10^6/uL (4.20-5.40); Red Cell Distribution Width 12.9 % (11.0-15.0); White Blood Count 13.2 10^3/uL (4.0-11.0)
[2024-01-29 20:50] LABS: Cannabinoid Screen Urine NEGATIVE (NEGATIVE)
[2024-01-29 20:51] LABS: Amphetamine Screen Urine NEGATIVE (NEGATIVE); Barbiturates Screen Urine NEGATIVE (NEGATIVE); Benzodiazepines Screen Urine NEGATIVE (NEGATIVE); Buprenorphine Screen Urine NEGATIVE (NEGATIVE); Cocaine Screen Urine NEGATIVE (NEGATIVE); Methadone Screen Urine NEGATIVE (NEGATIVE); Methamphetamines Screen Urine NEGATIVE (NEGATIVE); Opiate Screen Urine NEGATIVE (NEGATIVE); Oxycodone Screen Urine NEGATIVE (NEGATIVE); Phencyclidine Screen Urine NEGATIVE (NEGATIVE); Tricyclic Antidepressant Urine NEGATIVE (NEGATIVE)
[2024-01-30] VITALS (38 sets, daily range): BP systolic 98–185; BP diastolic 57–118; PULSE 30–92; TEMP 36.4–36.6
[2024-01-30] MEDS: OXYTOCIN/0.9 % SODIUM CHLORIDE 10 UNITS/500 ML PLAST..BAG 6 UNIT IV (07:09)
[2024-01-30] MEDS: 0.9 % SODIUM CHLORIDE 1,000 ML 125 ML IV ×2 (07:10→13:08)
--- NOTE | 2024-01-30 08:23 | W.PC.ACHO ---
Registration Status: ADM IN Primary Language: Nigerian Preferred Language: Nigerian Report received from Luisa DUMONT at 0710. Active Medications Generic Name Dose Route Start Last Admin Trade Name Freq PRN Reason Stop Dose Admin Carboprost Tromethamine 250 mcg 01/29/24 19:14 Carboprost Tromethamine 250 Mcg/Ml 1 Ml Vial IM 01/31/24 19:14 Q15M PRN Bleeding Diphenhydramine HCl 25 mg 01/29/24 19:14 Diphenhydramine Hcl 50 Mg/Ml Vial IV 01/30/24 19:17 Q6H PRN Itching Ephedrine Sulfate 5 mg 01/29/24 19:14 Ephedrine Sulfate 50 Mg/Ml Vial IV 01/30/24 19:17 Q5M PRN Blood Pressure - Low Fentanyl Citrate 100 mcg 01/29/24 19:14 Fentanyl Citrate/Pf 100 Mcg/2 Ml Vial EPIDURAL ONCE PRN epidural Fentanyl Citrate 100 mcg 01/29/24 19:14 Fentanyl Citrate/Pf 100 Mcg/2 Ml Vial EPIDURAL ONCE PRN epidural Tranexamic Acid 1,000 mg/ 110 mls @ 440 mls/hr 01/29/24 19:14 Sodium Chloride IV 01/31/24 19:14 ONCE PRN Uterine Bleeding Sodium Chloride 1,000 mls @ 125 mls/hr 01/29/24 19:30 01/30/24 07:10 Sodium Chloride 0.9% 1,000 Ml IV 125 mls/hr .Q8H SAMMI Administration Oxytocin/Sodium Chloride 10 units in 500 mls @ 6 mls/hr 01/29/24 19:15 01/30/24 08:15 Pitocin 10 Unit/500 Ml-Ns IV 6 milliunit/min TITR SAMMI 18 mls/hr Infusion Protocol 2 MILLIUNIT/MIN Oxytocin/Sodium Chloride 20 units in 1,000 mls @ 125 mls/hr 01/29/24 19:14 Pitocin 20 Unit/1,000 Ml-Ns IV Q8H PRN POST DELIVERY Ropivacaine/Sodium Chloride 400 mg in 200 mls @ 6 mls/hr 01/29/24 19:15 Naropin 0.2% 400 Mg/200 Ml Bag EPIDURAL Q24H SAMMI Lidocaine 5 ml 01/29/24 19:14 Lidocaine Viscous 2% 15 Ml Solution TOPICAL 01/31/24 19:15 ONCE PRN Pain Lidocaine 1 ml 01/29/24 19:14 Lidocaine Hcl 1% 200 Mg/20 Ml Mdv INJ 01/31/24 19:15 ONCE PRN Pain Lidocaine 5 ml 01/29/24 19:14 Lidocaine Hcl 2% Pf 100 Mg/5 Ml Vial INJ 01/30/24 19:16 Q1H PRN Pain Methylergonovine Maleate 0.2 mg 01/29/24 19:14 Methylergonovine Maleate 0.2 Mg/Ml Ampule IM 01/31/24 19:14 ONCE PRN Uterine Contractility/Contract Methylergonovine Maleate 0.2 mg 01/29/24 19:14 Methylergonovine Maleate 0.2 Mg Tablet PO 01/31/24 19:14 Q4H PRN Uterine Contractility/Contract Misoprostol 600 mcg 01/29/24 19:14 Misoprostol 100 Mcg Tablet PO 01/31/24 19:14 ONCE PRN Uterine Bleeding Misoprostol 800 mcg 01/29/24 19:14 Misoprostol 100 Mcg Tablet SL 01/31/24 19:14 ONCE PRN Uterine Bleeding Misoprostol 1,000 mcg 01/29/24 19:14 Misoprostol 100 Mcg Tablet VA 01/31/24 19:14 ONCE PRN Uterine Bleeding Nalbuphine HCl 10 mg 01/29/24 19:14 Nalbuphine Hcl 10 Mg/Ml Ampule IV Q3H PRN Pain Naloxone HCl 0.4 mg 01/29/24 19:14 Naloxone Hcl 0.4 Mg/Ml Vial IV 01/30/24 19:17 ONCE PRN Opiate Reversal Ondansetron HCl 4 mg 01/29/24 19:14 Ondansetron Pf 4 Mg/2 Ml Vial IV Q6H PRN Nausea And Vomiting Ondansetron HCl 4 mg 01/29/24 19:14 Ondansetron 4 Mg Rapdis Tablet SL Q6H PRN Nausea And Vomiting Oxytocin 10 unit 01/29/24 19:14 Oxytocin 10 Unit/Ml Vial IM 01/31/24 19:14 ONCE PRN Bleeding Diet Category Date Time Status Regular Consistency Diet Diet 01/29/24 19:15 Active IV Insertion/Site Date of IV Line Insertion [20g 01/29/24 left Hand] IV Insertion Time [20g left 19:35 Hand] Neurology Patient orientation (short person,place,time,situation list) Respiratory Oxygen Delivery Method Room Air Oxygen Delivery Method Room Air
[2024-01-30] MEDS: NALBUPHINE HCL 10 MG/ML AMPULE IV (13:08)
[2024-01-30] MEDS: FENTANYL CITRATE/PF 100 MCG/2 ML VIAL EPIDURAL (14:38)
[2024-01-30] MEDS: LIDOCAINE HCL 1% 200 MG/20 ML MDV INJ (15:25)
[2024-01-30] MEDS: OXYTOCIN/0.9 % SODIUM CHLORIDE 20 UNITS/1,000 ML PLAST..BAG 125 UNIT IV (15:30)
--- NOTE | 2024-01-30 15:46 | PM.OBPRCVD ---
Procedure Intrapartal events: None Induction method: per pitocin protocol Delivery augmentation: rupture of membranes and pitocin Delivery monitor: external FHT and external uterine Route of delivery: Episiotomy Description: midline L&D Laceration Description: perineal - 2nd degree Delivery repair: Vicryl Estimated blood loss (mL): 300 Anesthesia type: Spinal Disposition: floor Infant Delivery date: 01/30/24 presentation: vertex Placental delivery description: Spontaneous cord description: 3 Vessels and Nuchal Cord
[2024-01-30] MEDS: GLYCERIN/WITCH HAZEL PADS 1 PAD TOPICAL (18:40)
[2024-01-30] MEDS: IBUPROFEN 600 MG TABLET PO (18:42)
[2024-01-30] MEDS: BENZOCAINE/MENTHOL 85 GRAM SPRAY BOTTLE 1 APPLIC TOPICAL (18:42)
[2024-01-31] VITALS (7 sets, daily range): BP systolic 110–134; BP diastolic 57–78; PULSE 75–77; TEMP 36.5–36.6
[2024-01-31] MEDS: IBUPROFEN 600 MG TABLET PO ×2 (00:45→09:04)
[2024-01-31 06:29] LABS: Basophils Percent Auto 0.2 % (0.2-2.0); Eosinophils Absolute Auto 0.1 10^3/uL (0.0-0.7); Eosinophils Percent Auto 0.3 % (0.9-7.0); Hemoglobin 11.1 g/dL (12.0-16.0); Immature Granulocytes Abs Auto 0.09 10^3/uL (0.00-0.03); Immature Granulocytes Pct Auto 0.5 % (0.0-0.5); Lymphocytes Absolute Auto 2.7 10^3/uL (1.2-3.8); Lymphocytes Percent Auto 13.9 % (20.5-60.0); Mean Corpuscular HGB Conc 33.6 g/dL (29.9-35.2); Mean Corpuscular Hemoglobin 30.2 pg (26.7-34.0); Mean Corpuscular Volume 89.7 fL (81.0-99.0); Mean Platelet Volume 9.6 fL (9.5-13.5); Monocytes Absolute Auto 1.2 10^3/uL (0.3-0.8); Monocytes Percent Auto 6.1 % (1.7-12.0); Neutrophils Absolute Auto 15.3 10^3/uL (1.4-6.5); Platelet Count 213 10^3/uL (150-450); Red Blood Count 3.68 10^6/uL (4.20-5.40); Red Cell Distribution Width 12.9 % (11.0-15.0); White Blood Count 19.4 10^3/uL (4.0-11.0)
--- NOTE | 2024-01-31 08:23 | PM.OBPN ---
OB - PN: Subj Subjective Patient comments: no complaints and tolerating diet infant status: doing well feeding status: exclusively Exam Constitutional Vital Signs, click to edit/add: Last Vital Signs Temp 97.7 F 01/31/24 00:48 Pulse 75 01/31/24 08:00 Resp 12 01/31/24 00:48 BP 134/78 01/31/24 08:00 O2 Del Method Room Air 01/31/24 00:48 Documenting provider has reviewed patient's vital signs: yes Common normals: no apparent distress Orientation/consciousness: Yes awake, Yes oriented to person, Yes oriented to place and Yes oriented to time HENMT Common normals: normocephalic Eye General eye: normal appearance of both eyes Neck & C-Spine Common normals: full ROM Lymph Lymphatic: no lymphadenopathy noted Chest Common normals: inspection of chest normal Respiratory Common normals: normal respiratory effort and no use of accessory muscles Effort & inspection: able to speak in complete sentences Cardio Common normals: regular rate and regular rhythm Rate: regular rate Rhythm: regular rhythm GI Common normals: Normal to inspection, nondistended, normoactive bowel sounds present Inspection: normal to inspection Palpation: soft, firm and tender Back & Pelvis Common normals: no CVA tenderness Lumbar spine/lower back: normal to inspection Extremity Common normals: normal to inspection General: normal exam except as noted Neuro Common normals: oriented x3 Sensorium/orientation: awake, alert, oriented to person, oriented to place and oriented to time Psych Common normals: mental status grossly normal, thought process normal, cooperative, affect normal, speech normal, activity/motor behavior normal, denies hallucinations, denies homicidal ideation and denies suicidal ideation Results Labs Labs: Short CBC 01/31/24 Range/Units 06:17 WBC 19.4 H (4.0-11.0) 10^3/uL Hgb 11.1 L (12.0-16.0) g/dL Hct 33.0 L (36.0-48.0) % Plt Count 213 (150-450) 10^3/uL OB - PN: A/P Plan - Vaginal Delivery day: 1 Plan: routine care Time Spent with Patient Time: Total time spent is greater than 50% in coordination of care (as documented) at patient's floor/unit and/or counseling patient: Total time spent with greater than 50% in coordination of care (as documented) at patient's floor/unit and/or counseling patient: less than 15 minutes
[2024-01-31] MEDS: DOCUSATE SODIUM 100 MG CAPSULE PO (09:05)
[2024-01-31] MEDS: ADACEL DIPH,PERTUSS(ACELL),TET VAC/PF 0.5 ML ADULT SYRINGE IM (16:55)
== END 2024-01-31 17:30 | disposition home or self-care (01) | DRG 807 ==
PROVIDERS: Admitting Provider Obstetrics & Gynecology; PCP Internal Medicine; Visit Provider Obstetrics & Gynecology
DX: O98.32 Other infections with a predominantly sexual mode of transmission complicating childbirth (principal); Z37.0 Single live birth; A60.00 Herpesviral infection of urogenital system, unspecified; O69.81X0 Labor and delivery complicated by cord around neck, without compression, not applicable or unspecified; O70.1 Second degree perineal laceration during delivery; Z3A.40 40 weeks gestation of pregnancy
CPT/HCPCS: 36415; 59050; 59410; 80307; 85025; 85027; 86850; 86900; 86901; 90715; J2300; J3010

== ENCOUNTER 2024-02-03 08:11 | Outpatient (OUT) | payer BC, SELFPAY ==
--- OUTSIDE RECORDS SUMMARY | 2024-02-03 08:16 | XMS_ITS | CCD ---
Author Organization [facility] Care Team Providers Care Artificial Candy Maker Name Role Phone GINA OLGUIN Consulting Unavailable REQUEST, NONE LISTED Attending Unavailable REQUEST, NONE LISTED Admitting Unavailable REQUEST, NONE LISTED Admitting Unavailable GINA OLGUIN Consulting Unavailable REQUEST, NONE LISTED Attending Unavailable Pato Martinez Unavailable GEORGI SHELBY Attending Unavailable RFEYAMASOOD Attending Unavailable HERON, GEORGI Attending Unavailable HERON, GEORGI Attending Unavailable HERON, GEORGI Attending Unavailable FREYA, MASOOD Attending Unavailable HERON, GEORGI Attending Unavailable FREYA, MASOOD Attending Unavailable HERON, GEORGI Attending Unavailable FREYA, MASOOD Attending Unavailable Allergies Allergy Classification Reported Allergen(s) Allergy Type Date of Onset Reaction(s) Facility (1 source) patient allergy list reviewed by nurse or physicia Propensity to adverse reactions Comment:Done [facility] Other (1 source) Allergies Reconciled Propensity to adverse reactions Unknown [facility] Other Medications Current Medications Medication Drug Class(es) [...] q HS for 0 *Pick strength-form from [employer] for eRX* Apr, Not-Taking/PRN sprintec 28 0.25-35 [...] times daily for 0 *Pick strength-form from [employer] for eRX* Apr, Not-Taking/PRN Sprintec 28 0.25-35MG-MCG (1 source) Start: 10-02-2021 take 1 tablet by mouth once daily as needed Sprintec 28 0.25-35MG-MCG Sprintec 28 0.25-35MG-MCG, 1 (one) Tablet Tablet daily # 3, 10/02/2021, Ref. x3. Active Oral daily for 0 *Pick strength-form from [employer] for eRX* Sep, Not-Taking/PRN Problems Active Problems [...] 04-08-2023 End: 04-08-2023 ambulatory Pato Juan Other [facility] Other Start: 04-08-2023 Telephone encounter Pato Martinez [...] (incl. purified surface antigen) Pato Martinez Other [facility] Other 03-11-2019 influenza virus vaccine, split virus (incl. purified surface antigen) Pato Ball Other [facility] [employer] Other Payers Date Payer Category Payer Unknown [id number] 1997 Unknown [id number] 2.16.84 [id number] 1997 Unknown [id number] 2.16.84 0.1.110769.3.579.2.1259 1997 Unknown [id number] 2.16.84 0.1.854561.3.579.2.1259 1997 Unknown [id number] 2.16.84 0.1.599171.3.579.2.1259 1997 Unknown [id number] 2.16.84 0.1.346624.3.579.2.1259 1997 Unknown [id number] 2.16.84 0.1.561510.3.579.2.1259 1997 Unknown [id number] 2.16.84 0.1.811889.3.579.2.1259 1997 Unknown [id number] 2.16.84 0.1.421201.3.579.2.1259 1997 Unknown [id number] 2.16.84 0.1.386081.3.579.2.1259 1997 Unknown [id number] 2.16.84 0.1.025778.3.579.2.1259 1997 Unknown [id number] 2.16.84 0.1.448683.3.579.2.1259 1959 Self-pay [employer] [facility] [id number] [id number] Unknown [id number] 2.16.84 0.1.842272.3.579.2.593 Unknown [id number] 2.16.84 0.1.548415.3.579.2.593 Social History Date Type Detail Facility Sex Assigned At [facility] Other Evaluation note 04-08-2023 Note Date & Type Note Facility 04-08-2023 Evaluation note Encounter Date Diagnosis Assessment Notes Mar, Cold sore (ICD-10 - B00.1) [facility] Other History general Narrative - Reported Note [...] no changes required, Problem Status : Inactive, [facility] Other Summary Purpose Family History No Family History Records FoundNo Family History Records Found Advance Directives No Advanced Directives Records FoundNo Advanced Directives Records Found Additional Source Comments INFORMATION SOURCE (unrecogn ized section and content) DATE CREATED AUTHOR 05/26/2020 [facility] DATE CREATED AUTHOR AUTHOR'S ORGANIZ ATION 01/11/2024 [facility] EPIC REASON FOR VISIT [...] BE BASED ON THE PRIMARY CLINICAL RECORDS. [employer] provides no warranty or guarantee of the accuracy or completeness of information in this document.
--- NOTE | 2024-02-03 15:25 | PC.NURSE ---
Silviano Stein and 4 day old Cassia arrive for follow up. sleeping in car seat, color pink, resp easy. Parents state doing well, Baby is so Chill Sarita denies concerns for self stating feels well, minimal bleeding , able to rest and baby is feeding every 2 hours. States milk started coming in late yesterday. Baby wakes every 2 hours and feeds for 01/29, and sleeps. Sarita with VSS and assessment WNL. Denies needing Motrin for discomfort. Baby with VSS and assessment WNL. Parents report 2-3 voids since yesterday afternoon. Report baby has only had 1 stool since discharge 01/31/2024 evening, It was huge Reviewed expectations and normals of infant feeding and outputs. Parents verbalize understanding. Will be careful with awareness and diaper counts. Baby to breast, latches sucks and swallows x7 minutes and then swallows become intermittent. Encouraged to use both breasts at a feed and to encourage longer feeding. Will return 02/10/2024 for further support.
[2024-02-03 15:26] VITALS: BP 135/81; PULSE 75; TEMP 36.8; O2SAT 97
== END 2024-02-03 12:40 | disposition home or self-care (01) ==
LOC: FBCO 08:12
PROVIDERS: PCP Internal Medicine; Visit Provider Obstetrics & Gynecology
DX: Z39.1 Encounter for care and examination of lactating mother (principal)

== ENCOUNTER 2024-02-10 08:05 | Outpatient (OUT) | payer BC, SELFPAY ==
--- OUTSIDE RECORDS SUMMARY | 2024-02-10 08:15 | XMS_ITS | CCD ---
Author Organization [facility] Care Team Providers Care Pig Caster Name Role Phone GINA OLGUIN Consulting Unavailable REQUEST, NONE LISTED Attending Unavailable REQUEST, NONE LISTED Admitting Unavailable REQUEST, NONE LISTED Admitting Unavailable GINA OLGUIN Consulting Unavailable REQUEST, NONE LISTED Attending Unavailable Pato Martinez Unavailable GEORGI JOHNSTON Attending Unavailable MASOOD PILLAI Attending Unavailable PRESTON, GEORGI Attending Unavailable PRESTON, GEORGI Attending Unavailable PRESTON, GEORGI Attending Unavailable MASOOD PILLAI Attending Unavailable PRESTON, GEORGI Attending Unavailable MASOOD PILLAI Attending Unavailable PRESTON, GEORGI Attending Unavailable MASOOD PILLAI Attending Unavailable Pato Martinez MD Primary Care Provider Allergies Allergy Classification Reported Allergen(s) Allergy Type Date of Onset Reaction(s) Facility (1 source) patient allergy list reviewed by nurse or physicia Propensity to adverse reactions Comment:Done [place] Other (1 source) Allergies Reconciled Propensity to adverse reactions Unknown [place] Other Medications Current Medications Medication Drug Class(es) Dates Sig (Normalized) Sig (Original) amoxicillin 875 mg / clavulanate 125 mg oral tablet (1 source) Penicillin-class Antibacterial Start: 11-13-2022 take 1 tablet by mouth every twelve hours Amoxicillin-Pot Clavulanate 875-125 MG 1 tablet Orally every 12 hrs for 7 days Oct, Active ferrous sulfate 325 mg delayed release oral tablet (2 sources) take 1 tablet by mouth at mealtime ferrous sulfate 325 (65 Fe) MG EC tablet Take 325 mg by mouth in the morning. Take with meals. Do not crush, chew, or split. . Active valACYclovir 500 mg oral tablet (3 sources) Herpesvirus Nucleoside Analog DNA Polymerase Inhibitor, Herpes Simplex Virus Nucleoside Analog DNA Polymerase Inhibitor, Herpes Zoster Virus Nucleoside Analog DNA Polymerase Inhibitor Start: 01-01-2024 End: 01-31-2024 take 1 tablet by mouth once daily valACYclovir (Valtrex) 500 MG tablet Indications: HSV (herpes simplex virus) infection Take 1 tablet (500 mg) by mouth Daily 30 tablet 01/01/2024 01/31/2024 Active Start: 04-08-2023 valACYclovir H Cl 1 GM 2 tablets twice daily x [...] q HS for 0 *Pick strength-form from [employer] for eRX* Apr, Not-Taking/PRN sprintec 28 0.25-35 [...] times daily for 0 *Pick strength-form from [employer] for eRX* Apr, Not-Taking/PRN Sprintec 28 0.25-35MG-MCG (1 source) Start: 10-02-2021 take 1 tablet by mouth once daily as needed Sprintec 28 0.25-35MG-MCG Sprintec 28 0.25-35MG-MCG, 1 (one) Tablet Tablet daily # 3, 10/02/2021, Ref. x3. Active Oral daily for 0 *Pick strength-form from [employer] for eRX* 13 Sep, 2021 Not-Taking/PRN Problems Active Problems Problem Classification Problem [...] [Acute maxillary sinusitis, unspecified] Onset: 03-28-2015 Episodic Unclassified (2 sources) OB Reminders Onset: 07-05-2023 07-05-2023 Viral infection (5 sources) Herpesviral vesicular dermatitis; Translations: [Herpesviral vesicular [...] caused by 2019-nCoV; Translations: [COVID-19] Resolved: 03-05-2022 Results Test Name Value Interpretation Reference Range Facil ity ALL CBC WITH AUTO DIFFon BASOPHILS ABSOLUTE AUTO 0.0 N [facility] Basophils/100 WBC (Bld) 0.2 % 0.2 - 2.0 % [facility] Eosinophils/100 WBC (Bld) 0.3 % Low 0.9 - 7.0 % [facility] Erythrocyte distribution width (RBC) [Ratio] 12.9 % 11.0 - 15.0 % [facility] Hematocrit (Bld) [Volume fraction] 33.0 % Low 36.0 - 48.0 % [facility] Hemoglobin (Bld) [Mass/Vol] 11.1 g/dL Low 12.0 - 1 6.0 g/dL [facility] IMMATURE GRANULOCYTES ABS AUTO 0.09 High [facility] Immature granulocytes/100 WBC (Bld) 0.5 % 0.0 - 0.5 % [facility] Interpretation and review of laboratory results Abnormal [facility] LYMPHOCYTES ABSOLUTE AUTO 2.7 [facility] Lymphocytes/100 WBC (Bld) 13.9 % Low 20.5 - 60. 0 % [facility] MCH (RBC) [Entitic mass] 30.2 pg 26.7 - 34.0 pg [facility] (RBC) [Mass/Vol] 33.6 g/dL 29.9 - 35.2 g/ dL [facility] MCV (RBC) [Entitic vol] 89.7 fL 81.0 - 99.0 fL [facility] MONOCYTES ABSOLUTE AUTO 1.2 High N [facility] Monocytes/100 WBC (Bld) 6.1 % 1.7 - 12.0 % [facility] NEUTROPHILS ABSOLUTE AUTO 15.3 High [facility] Neutrophils/100 WBC (Bld) 79.0 % High 43.0 - 75. 0 % [facility] Platelet mean volume (Bld) [Entitic vol] 9.6 fL 9.5 - 13.5 fL [facility] TB[facility] EO # 0.1 [facility] PLT 213 [facility] RBC 3.68 Low [facility] WBC 19.4 High [facility] CBC WITH PLATELET NO DI FFERENTIALon 01-29-2024 Erythrocyte distribution width (RBC) [Ratio] 12.9 % 11.0 - 15.0 % [facility] Hematocrit (Bld) [Volume fraction] 36.5 % 36.0 - 48.0 % [facility] Hemoglobin (Bld) [Mass/Vol] 12.4 g/dL 12.0 - 1 6.0 g/dL [facility] Interpretation and review of laboratory results [facility] MCH (RBC) [Entitic mass] 30.7 pg 26.7 - 34.0 pg [facility] MCHC (RBC) [Mass/Vol] 34.0 g/dL 29.9 - 35.2 g/ dL [facility] MCV (RBC) [Entitic vol] 90.3 fL 81.0 - 99.0 fL [facility] Platelet mean volume (Bld) [Entitic vol] 9.6 fL 9.5 - 13.5 fL [facility] TBH PLT 250 [facility] RBC 4.04 Low [facility] WBC 13.2 High [facility] En[facility]ters Encounter Date Encounter Type Care Provider Facility Start: 01-31-2024 End: 01-31-2024 [facility] Result Encounter Georgi Preston DO Work Phone: [facility] Unsolicited Start: 01-31-2024 End: 01-31-2024 [facility] Result Encounter Georgi Preston DO Work Phone: [facility] Unsolicited Start: 01-29-2024 End: 01-29-2024 [facility] Result Encounter Georgi Preston DO Work Phone: [facility] Unsolicited Start: 01-29-2024 End: 01-29-2024 [facility] Result Encounter Georgi Preston DO Work Phone: [facility] Unsolicited Start: 01-08-2024 End: 01-08-2024 ambulatory MASOOD FREYA Not Available Start: 01-01-2024 End: 01-01-2024 ambulatory GEORGI PRESTON Not Available Start: 12-19-2023 End: 12-19-2023 ambulatory MASOOD FREYA Not Available Start: 12-05-2023 End: 12-05-2023 ambulatory GEORGI PRESTON Not Available Start: 11-20-2023 End: 11-20-2023 ambulatory MASOOD FREYA Not Available Start: 11-06-2023 End: 11-06-2023 ambulatory GEORGI PRESTON Not Available Start: 10-16-2023 End: 10-16-2023 ambulatory GEORGI PRESTON Not Available Start: 09-18-2023 End: 09-18-2023 ambulatory GEORGI PRESTON Not Available Start: 08-19-2023 End: 08-19-2023 ambulatory MASOOD FREYA Not Available Start: 07-18-2023 End: 07-18-2023 ambulatory GEORGI PRESTON Not Available Start: 07-05-2023 End: 07-05-2023 ambulatory GEORGI PRESTON Not Available Start: 04-08-2023 End: 04-08-2023 ambulatory Pato Martinez Other [place] [employer] Other Start: 04-08-2023 Telephone encounter [facility] Start: 05-26-2020 End: 05-27-2020 Patient encounter procedure NONE LISTED REQUEST Facility:[facility] Start: 04-28-2020 End: 04-29-2020 Patient encounter procedure GINA OLGUIN Facility: Procedures Date Procedure Procedure Detail Performing Clinician Start: 01-31-2024 ALL CBC WITH AUTO DIFF Georgi Preston DO Work Phone: Start: 01-29-2024 [facility] CBC WITH PLATEL ET NO DIFFERENTIAL Georgijose Johnston DO Work Phone: Start: 09-10-2018 General examination of patient Pato Martinez Other Depression screening Donnell Martinez Other Immunizations Immunization Date Immunization Notes Care Provider Meli wilkinson 02-04-2020 influenza virus vaccine, split virus (incl. purified surface antigen) Pato Martinez Other [place] Other 03-11-2019 influenza virus vaccine, split virus (incl. purified surface antigen) Pato Martinez Other [place] Other Payers Date Payer Category Payer Unknown BCBS BCBS [id number] 2022-Present [phone] [address] [place] [address] [id number] 2022 Unknown [id number] 1997 Unknown [id number] 2.16.840.1.015982.3.579.2. 9 1997 Unknown [id number] 2.16.840.1.111249.3.579.2. 1259 1997 Unknown [id number] 2.16.840.1.908550.3.579.2. 1259 1997 Unknown [id number] 2.16.840.1.085771.3.579.2. 1259 1997 Unknown [id number] 2.16.840.1.366141.3.579.2. 1259 1997 Unknown [id number] 2.16.840.1.195241.3.579.2. 1259 1997 Unknown [id number] 2.16.840.1.462035.3.579.2. 1259 1997 Unknown [id number] 2.16.840.1.880750.3.579.2. 1259 1997 Unknown [id number] 2.16.840.1.348090.3.579.2. 1259 1997 Unknown [id number] 2.16.840.1.093666.3.579.2. 1259 1997 Unknown [id number] 2.16.840.1.166740.3.579.2. 1259 1959 Self-pay [facility] [id number] 2.16.840.1.499381.19 Unknown [id number] 2.16.840.1.353840.3.579.2. 593 Unknown [id number] 2.16.840.1.619189.3.579.2. 593 Social History Date Type Detail Facility Sex Assigned At [place] Other Tobacco smoking stat [facility] Tobacco smoking consumption unknown [facility] Start: 05-06-2023 [facility] Start: 1995 Sex assigned at Female [facility] Start: 01-22-2023 Gender identity Identifies as female gender (finding) [facility] Start: 01-22-2023 Sexual orientation Heterosexual (finding) [facility] Healthcare Goals Date Patient Goal Desired Activity /State Personal health goal Evaluation note 04-08-2023 Note Date & Type Note Facility 04-08-2023 Evaluation note Encounter Date Diagnosis Assessment Notes Mar, Cold sore (ICD-10 - B00.1) [place] Other History general Narrative - Reported Note [...] no changes required, Problem Status : Inactive, [place] Other Summary Purpose Family History No Family History Records FoundNo Family History Records Found Advance Directives No Advanced Directives Records FoundNo Advanced Directives Records Found Additional Source Comments INFORMATION SOURCE (unrecogn ized section and content) DATE CREATED AUTHOR 05/26/2020 [facility] DATE CREATED AUTHOR AUTHOR'S ORGANIZ ATION 01/11/2024 [facility] EPIC REASON FOR VISIT (unrecogniz ed section and content) refill Care Teams (unrecognized sec tion and content) Pig Caster Relationship Specialty Start Date End Date Pato Martinez MD [address] [facility] [place] [address] PCP - General Internal Medicine 01/08/23 FOR RECORDS PERTAINING TO PATIENTS WHO ARE [...] BE BASED ON THE PRIMARY CLINICAL RECORDS. [email or web address] provides no warranty or guarantee of the accuracy or completeness of information in this document.
== END 2024-02-10 08:06 | disposition home or self-care (01) ==
LOC: FBCO 08:06
PROVIDERS: PCP Internal Medicine; Visit Provider Obstetrics & Gynecology
DX: Z39.1 Encounter for care and examination of lactating mother (principal)
CPT/HCPCS: G0463

== ENCOUNTER 2024-02-13 08:05 | Outpatient (OUT) | payer BC, SELFPAY ==
--- OUTSIDE RECORDS SUMMARY | 2024-02-13 08:11 | XMS_ITS | CCD ---
Author Organization [facility] Care Team Providers Care Glass Laminating Operator Name Role Phone GINA OLGUIN Consulting [...] or physicia Propensity to adverse reactions Comment:Done [facility] Other (1 source) Allergies Reconciled Propensity to adverse reactions Unknown [facility] Other Medications Current Medications Medication Drug Class(es) [...] q HS for 0 *Pick strength-form from [employer] for eRX* Apr, Not-Taking/PRN sprintec 28 0.25-35 [...] times daily for 0 *Pick strength-form from [employer] for eRX* Apr, Not-Taking/PRN Sprintec 28 0.25-35MG-MCG (1 source) Start: 10-02-2021 take 1 tablet by mouth once daily as needed Sprintec 28 0.25-35MG-MCG Sprintec 28 0.25-35MG-MCG, 1 (one) Tablet Tablet daily # 3, 10/02/2021, Ref. x3. Active Oral daily for 0 *Pick strength-form from [employer] for eRX* 13 Sep, 2021 Not-Taking/PRN Problems [...] AUTO DIFFon BASOPHILS ABSOLUTE AUTO 0.0 N [facility] Basophils/100 WBC (Bld) 0.2 % 0.2 - 2.0 % [facility] Eosinophils/100 WBC (Bld) 0.3 % Low 0.9 - 7.0 % [facility] Erythrocyte distribution width (RBC) [Ratio] 12.9 % 11.0 - 15.0 % [facility] Hematocrit (Bld) [Volume fraction] 33.0 % Low 36.0 - 48.0 % [facility] Hemoglobin (Bld) [Mass/Vol] 11.1 g/dL Low 12.0 - 1 6.0 g/dL [facility] IMMATURE GRANULOCYTES ABS AUTO 0.09 High [facility] Immature granulocytes/100 WBC (Bld) 0.5 % 0.0 - 0.5 % [facility] Interpretation and review of laboratory results Abnormal [facility] LYMPHOCYTES ABSOLUTE AUTO 2.7 [facility] Lymphocytes/100 WBC (Bld) 13.9 % Low 20.5 - 60. 0 % [facility] MCH (RBC) [Entitic mass] 30.2 pg 26.7 - 34.0 pg [facility] ([facility]BC[facility] [Mass/Vol] 33.6 g/dL 29.9 - 35.2 g/ dL [facility] MCV (RBC) [Entitic vol] 89.7 fL 81.0 - 99.0 fL [facility] MONOCYTES ABSOLUTE AUTO 1.2 High N [...] 12.4 g/dL 12.0 - 1 6.0 g/dL [facility] Interpretation and review of laboratory results [facility] MCH (RBC) [Entitic mass] 30.7 pg 26.7 - 34.0 pg [facility] MCHC (RBC) [Mass/Vol] 34.0 g/dL 29.9 - 35.2 g/ dL [facility] MCV (RBC) [Entitic vol] 90.3 fL 81.0 - 99.0 fL [facility] Platelet mean volume (Bld) [Entitic vol] 9.6 fL 9.5 - 13.5 fL [facility] TBH PLT 250 [facility] [...] 04-08-2023 End: 04-08-2023 ambulatory Pato Martinez Other [employer] Other Start: 04-08-2023 Telephone encounter Pato Martinez [...] (incl. purified surface antigen) Pato Martinez Other [employer] Other 03-11-2019 influenza virus vaccine, split virus (incl. purified surface antigen) Pato Martinez Other [employer] Other Payers Date Payer Category Payer Unknown BCBS BCBS xxxxxx [id number] 2022-Present [phone] [address] [place] [address] [id number]. [id number] 2022 Unknown [id number] 1997 Unknown [id number] 2.16.840.1.940876.3.579.2. 9 1997 Unknown [id number] 2.16.840.1.356062.3.579.2. 1259 1997 Unknown [id number] 2.16.840.1.695451.3.579.2. 1259 1997 Unknown [id number] 2.16.840.1.296598.3.579.2. 1259 1997 Unknown [id number] 2.16.840.1.430916.3.579.2. 1259 1997 Unknown [id number] 2.16.840.1.623550.3.579.2. 1259 1997 Unknown [id number] 2.16.840.1.375365.3.579.2. 1259 1997 Unknown [id number] 2.16.840.1.396864.3.579.2. 1259 1997 Unknown [id number] 2.16.840.1.425577.3.579.2. 1259 1997 Unknown [id number] 2.16.840.1.715928.3.579.2. 1259 1997 Unknown [id number] 2.16.840.1.305258.3.579.2. 1259 1959 Self-pay [facility] [id number] 2.16.840.1.448618.19 Unknown [id number] 2.16.840.1.484460.3.579.2. 593 Unknown [id number] 2.16.840.1.827657.3.579.2. 593 Social History Date Type Detail Facility Sex Assigned At [facility] Other Tobacco smoking stat [facility] Tobacco smoking consumption unknown [facility] Healthcare Start: 05-06-2023 [facility] Start: 1995 Sex assigned at Female [facility] Healthcare Start: 01-22-2023 Gender identity Identifies as female gender (finding) [facility] Start: 01-22-2023 Sexual orientation Heterosexual (finding) [facility] Healthcare Goals Date Patient Goal Desired Activity /State Personal health goal Evaluation note 04-08-2023 Note Date & Type Note Facility 04-08-2023 Evaluation note Encounter Date Diagnosis Assessment Notes Mar, Cold sore (ICD-10 - B00.1) [facility] Other History general Narrative - Reported Note [...] no changes required, Problem Status : Inactive, [facility] Other Summary Purpose Family History No Family History Records FoundNo Family History Records Found Advance Directives No Advanced Directives Records FoundNo Advanced Directives Records Found Additional Source Comments INFORMATION SOURCE (unrecogn ized section and content) DATE CREATED AUTHOR 05/26/2020 [facility] DATE CREATED AUTHOR AUTHOR'S ORGANIZ ATION 01/11/2024 [facility]ists EPIC REASON FOR VISIT (unrecogniz ed section and content) refill Care Teams (unrecognized sec tion and content) Glass Laminating Operator Relationship Specialty Start Date End Date Pato Martinez MD [address] [facility] [place] [address] PCP - General Internal Medicine [...] BE BASED ON THE PRIMARY CLINICAL RECORDS. [employer] provides no warranty or guarantee of the accuracy or completeness of information in this document.
--- NOTE | 2024-02-13 09:51 | PC.NURSE ---
Sarita and 14 day old Cassia arrive for weight check and supply check. Cristopher mcfadden has been pumping 5-6 times daily, obtains 10 ml combined after baby nurses. Reports infant more fussy, frequently rooting and crying at 1 hour adela after feed. Cassia to scales and no change in weight 3660 gms today. Same recorded weight since 02/03/2024. Mom reports infant has 5 wets and 3-4 small yellow stools daily. Mom states so she is not getting enough breast milk from me . Discussed previous risk factors, such as , no breast or nipple changes with , type III breasts upon inspection and low supply. Sarita states well we do what we need to do I didn't want to not try to breast feed her, I knew something was up . Reassurance given to continue Cassia as both mom and want, but to increase feeding with either donor milk or formula added. Mom declines donor milk, states will use formula. Discussed slow paced feeding, mixing formula and appropriate amounts for infant. Will start with 1.5 oz after each feed at the breast and increase as infant cues. Sarita will cope with information and understands need for supplementation. Plans to return 02/20/2024 for weight check and further support. Mom and baby home at this time.
== END 2024-02-13 10:02 | disposition home or self-care (01) ==
LOC: FBCO 08:06
PROVIDERS: PCP Internal Medicine; Visit Provider Obstetrics & Gynecology
DX: Z39.1 Encounter for care and examination of lactating mother (principal)
CPT/HCPCS: G0463

== ENCOUNTER 2024-02-20 08:18 | Outpatient (OUT) | payer BC, SELFPAY ==
--- OUTSIDE RECORDS SUMMARY | 2024-02-20 08:40 | XMS_ITS | CCD ---
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 Name Role Phone GINA OLGUIN Consulting Unavailable [...] or physicia Propensity to adverse reactions Comment:Done [facility] Other (1 source) Allergies Reconciled Propensity to adverse reactions Unknown [facility] Other Medications Current Medications Medication Drug Class(es) [...] q HS for 0 *Pick strength-form from [employer] for eRX* Apr, Not-Taking/PRN sprintec 28 0.25-35 [...] times daily for 0 *Pick strength-form from [employer] for eRX* Apr, Not-Taking/PRN Sprintec 28 0.25-35MG-MCG (1 source) Start: 10-02-2021 take 1 tablet by mouth once daily as needed Sprintec 28 0.25-35MG-MCG Sprintec 28 0.25-35MG-MCG, 1 (one) Tablet Tablet daily # 3, 10/02/2021, Ref. x3. Active Oral daily for 0 *Pick strength-form from [employer] for eRX* 13 Sep, 2021 Not-Taking/PRN Problems [...] AUTO DIFFon BASOPHILS ABSOLUTE AUTO 0.0 N [facility] Basophils/100 WBC (Bld) 0.2 % 0.2 - 2.0 % [facility] Eosinophils/100 WBC (Bld) 0.3 % Low 0.9 - 7.0 % [facility] Erythrocyte distribution width (RBC) [Ratio] 12.9 % 11.0 - 15.0 % [facility] Hematocrit (Bld) [Volume fraction] 33.0 % Low 36.0 - 48.0 % [facility] Hemoglobin (Bld) [Mass/Vol] 11.1 g/dL Low 12.0 - 1 6.0 g/dL [facility] IMMATURE GRANULOCYTES ABS AUTO 0.09 High [facility] Immature granulocytes/100 WBC (Bld) 0.5 % 0.0 - 0.5 % [facility] Interpretation and review of laboratory results Abnormal [facility] LYMPHOCYTES ABSOLUTE AUTO 2.7 [facility] Lymphocytes/100 WBC (Bld) 13.9 % Low 20.5 - 60. 0 % [facility] MCH (RBC) [Entitic mass] 30.2 pg 26.7 - 34.0 pg [facility] (RBC) [Mass/Vol] 33.6 g/dL 29.9 - 35.2 g/ dL [facility] MCV (RBC) [Entitic vol] 89.7 fL 81.0 - 99.0 fL [facility] MONOCYTES ABSOLUTE AUTO 1.2 High N [...] 12.4 g/dL 12.0 - 1 6.0 g/dL [facility] Interpretation and review of laboratory results [facility] (RBC) [Entitic mass] 30.7 pg 26.7 - 34.0 pg [facility] MCHC (RBC) [Mass/Vol] 34.0 g/dL 29.9 - 35.2 g/ dL [facility] MCV (RBC) [Entitic vol] 90.3 fL 81.0 - 99.0 fL [facility] Platelet mean volume (Bld) [Entitic vol] 9.6 fL 9.5 - 13.5 fL [facility] TBH PLT 250 [facility] [...] 04-08-2023 End: 04-08-2023 ambulatory Pato Martinez Other [employer] Other Start: 04-08-2023 Telephone encounter Pato Martinez [...] (incl. purified surface antigen) Pato Martinez Other [employer] Other 03-11-2019 influenza virus vaccine, split virus (incl. purified surface antigen) Pato Martinez Other [employer] Other Payers Date Payer Category Payer Unknown BCBS BCBS xxxxxx [id number] 2022-Present [phone] [address] [place] [address] 1.2.840.480426.1.13.693.2. 7.3.437859.315 2022 Unknown [id number] 1997 Unknown [id number] 2.16.840.1.855178.3.579.2. 9 1997 Unknown [id number] 2.16.840.1.102087.3.579.2. 1259 1997 Unknown [id number] 2.16.840.1.219225.3.579.2. 1259 1997 Unknown [id number] 2.16.840.1.606044.3.579.2. 1259 1997 Unknown [id number] 2.16.840.1.774059.3.579.2. 1259 1997 Unknown [id number] 2.16.840.1.101776.3.579.2. 1259 1997 Unknown [id number] 2.16.840.1.405914.3.579.2. 1259 1997 Unknown [id number] 2.16.840.1.955714.3.579.2. 1259 1997 Unknown [id number] 2.16.840.1.741842.3.579.2. 1259 1997 Unknown [id number] 2.16.840.1.172266.3.579.2. 1259 1997 Unknown [id number] 2.16.840.1.266919.3.579.2. 1259 1959 Self-pay [facility] [id number] 2.16.840.1.270522.19 Unknown [id number] 2.16.840.1.541150.3.579.2. 593 Unknown [id number] 2.16.840.1.927485.3.579.2. 593 Social History Date Type Detail Facility Sex Assigned At [facility] Other Tobacco smoking stat [facility] Tobacco smoking consumption unknown [facility] Healthcare Start: 05-06-2023 [facility] Start: 1995 Sex assigned at Female [facility] Healthcare Start: 01-22-2023 Gender identity Identifies as female gender (finding) [facility] Healthcare Start: 01-22-2023 Sexual orientation Heterosexual (finding) [facility] Healthcare Goals Date Patient Goal Desired Activity /State Personal health goal Evaluation note 04-08-2023 Note Date & Type Note Facility 04-08-2023 Evaluation note Encounter Date Diagnosis Assessment Notes Mar, Cold sore (ICD-10 - B00.1) [facility] Other History general Narrative - Reported Note [...] no changes required, Problem Status : Inactive, [employer] Other Summary Purpose Family History No Family History Records FoundNo Family History Records Found Advance Directives No Advanced Directives Records FoundNo Advanced Directives Records Found Additional Source Comments INFORMATION SOURCE (unrecogn ized section and content) DATE CREATED AUTHOR 05/26/2020 [facility] DATE CREATED AUTHOR AUTHOR'S ORGANIZ ATION 01/11/2024 [facility] d[facility] Specialists EPIC REASON FOR VISIT (unrecogniz ed section and content) refill Care Teams (unrecognized sec tion and content) Gear Roller Relationship Specialty Start Date End Date Pato Martinez MD [address] [facility] [place] [address] PCP - General Internal Medicine [...] BE BASED ON THE PRIMARY CLINICAL RECORDS. [employer] provides no warranty or guarantee of the accuracy or completeness of information in this document.
== END 2024-02-20 09:59 | disposition home or self-care (01) ==
LOC: FBCO 08:19
PROVIDERS: PCP Internal Medicine; Visit Provider Obstetrics & Gynecology
DX: Z39.1 Encounter for care and examination of lactating mother (principal)
CPT/HCPCS: G0463